=== PATIENT | male | born 1965 | race Caucasian/White ===

== ENCOUNTER 2021-12-07 07:53 | Outpatient (REF) | payer OTHER, SELFPAY ==
--- NOTE | 2021-12-07 11:51 | PFT_ITS ---
FLOWS: FEV1 106% of predicted at 4.31 L. FVC 96% predicted at 5.11 L. FEV1 to FVC ratio of 0.84. No bronchodilator response. LUNG VOLUMES: Total lung capacity 105% of predicted at 7.78 L. Residual volume 115% of predicted at 2.59 L. Slow vital capacity 101% of predicted at 5.18 L. Expiratory reserve volume 32% of predicted at 0.51 L. Diffusion capacity is normal. IMPRESSION: No obstructive or restrictive ventilatory defect. No bronchodilator response. Decreased expiratory reserve volume suggests extrathoracic restriction likely secondary to abdominal obesity. Kevan Martínez MD AP/MODL / [id number]
== END 2021-12-07 07:54 | disposition home or self-care (01) ==
LOC: HO.RESP 07:53
PROVIDERS: PCP Physician Assistant Medical; Visit Provider Physician Assistant Medical
DX: J45.909 Unspecified asthma, uncomplicated (principal)
CPT/HCPCS: 94060; 94727; 94729

== ENCOUNTER 2021-12-15 11:28 | Outpatient (REF) | payer OTHER, SELFPAY ==
--- NOTE | 2021-12-15 13:33 | PFT_ITS ---
FVC is 95%, FEV1 102%, FEV1/FVC ratio is 82, MVV 112%. Post bronchodilator therapy, there is no change. The patient was given methacholine challenge, and post methacholine challenge, there is no decline in the flow volumes. This is considered to be negative methacholine challenge test and does not indicate any diagnosis of bronchospasm or bronchial asthma. MD MONTY Anders/MODL / [id number]
== END 2021-12-15 11:29 | disposition home or self-care (01) ==
LOC: HO.RESP 11:28
PROVIDERS: PCP Physician Assistant Medical; Visit Provider Internal Medicine
DX: J30.9 Allergic rhinitis, unspecified (principal); R06.00 Dyspnea, unspecified
CPT/HCPCS: 94070; J7674

== ENCOUNTER 2025-01-01 11:17 | Outpatient (AMB) | payer BC, SELFPAY ==
--- NOTE | 2025-01-01 11:36 | A.OFFVIS_ITS ---
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 He is presenting with post-operative cataract surgery status, diabetes mellitus, and peripheral neuropathy. He underwent cataract surgery on the right eye one month ago, and on the left eye earlier this week. He reports improved vision in the right eye but persistent blurriness in the left. The patient is preparing f or future corrective eyewear. In terms of comorbid conditions, the patient's Type 2 Diabetes Mellitus is reportedly controlled. He experiences peripheral neuropathy, which manifests as leg cramps and is being treated with gabapentin and tizanidine, the latter in tablet form, successfully reducing cramps. He also employs nightly foot baths and creams for additional relief. Regular blood testing ensures his condition remains under control. [facility] Medical History (Updated 01/01/25 @ 11:37 by Cheyenne Lamar MD) Allergic rhinitis Social History Patient Tobacco Use Status: Former Tobacco user Years Smoked: 10 Review of Systems Narrative - Ophthalmologic: Reports blurry vision post-cataract surgery in the left eye; improved right eye vision post-surgery. - Endocrine: Reports controlled diabetes. - Neurologic: Reports peripheral neuropathy with cramping; improved with medication. Physical Exam Neuro Other: Mental Status: Alert and oriented to person, place, and time. Normal attention. Normal spontaneous speech, fluency, and comprehension. No obvious issues with mood and memory. Affect is appropriate. Cranial Nerves: CN II: Visual henriquez full to confrontation, visual acuity intact. CN III, IV, : Pupils equal, round, reactive to light and accommodation. Extraocular movements are normal. CN V: Facial sensation is normal. CN VII: Facial movements symmetrical. CN VIII: Hearing intact to bedside conversation is normal. CN IX, X: Palate elevates symmetrically. CN XI: Shoulder shrug and head turn symmetrical. CN XII: Tongue midline without atrophy or fasciculations. Extrapyramidal: Full facial expressions and blinking. No rigidity. Movements are appropriate with no tremor or abnormality. Speech: Normal; no dysarthria or tremor. Assessment & Plan Assessment & Plan (1) Peripheral neuropathy: Comment: NCV/EMG LE 06/09/19 Moderately severe chronic axonal sensory and motor peripheral neuropathy. EMG/NCS at [facility] in Feb 2017: Mod severe axonal SM PN, b/l distal tibial neuropathy across TT. MRI LS spine at [facility] in May 2019: large L5/S1 disc herniation Code(s): G62.9 - Polyneuropathy, unspecified Category: Medical Qualifiers: Peripheral neuropathy type: polyneuropathy, other Qualified Code(s): G62.89 - Other specified polyneuropathies Plan Impression: 59 years old man with painful moderately severe chronic axonal diabetic sensory and motor peripheral neuropathy Recommendations: 1. Gabapentin 600 mg 1 at bedtime 2. Carbamazepine 200 mg 1 at bedtime 3. Tizanidine 4 mg 1 at bedtime 4. Stay physically and socially active and appropriate foot care Medications: New gabapentin 600 mg PO BEDTIME 90 tabs 1RF carbamazepine (Tegretol) 200 mg PO ONCE 90 tabs 1RF 90 days tizanidine 4 mg PO BEDTIME 90 tabs 1RF muscle spasticity Coding Level of Care Code Est Pt Level 3 (50121) Global (50106) Diagnoses Other polyneuropathy G62.89 Peripheral neuropathy type: polyneuropathy, other
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
--- OUTSIDE RECORDS SUMMARY | 2025-01-01 14:21 | XMS_ITS | Clinical Summary ---
Author Organization [address] [facility] Address [address] [place] [address] Phone Care Team Providers Care Iron Melter Name Role Phone Noni Newberry Primary Care Provider [phone] Allergies Active Allergy Reactions Criticality Noted Date Comments Penicillin V Potassium 04/19/2005 Pen Vk Penicillins 04/28/2016 Phenergan Plain 08/17/2011 Promethazine 04/28/2016 Sulfa (Sulfonamide Antibiotics) 02/2005 Sulfa Drugs Medications albuterol HFA (PROAIR HFA ; PROVENTIL HFA ; VENTOLIN HFA) 90 mcg/actuation inhaler ALBUTEROL SULFATE 108 (90 Base) MCG/ACT Aero Soln Inhale 2 Puffs into the lungs every 4 hours as needed Active amLODIPine (NORVASC) 5 mg tablet Take 5 mg by mouth daily. Active amphetamine-de xtroamphetamin e (ADDERALL) 20 mg tablet Take 1 Tablet by mouth daily. Active carBAMazepine XR (TEGretol XR) 100 mg 12 hr tablet carbamazepine (TEGRETOL XR) 100 MG 12 hr tablet Take 100 mg by mouth daily Active empagliflozin (Jardiance) 10 mg tablet Empagliflozin 10 MG Tab Take by mouth Active gabapentin (NEURONTIN) 600 mg tablet Take 1 Tablet by mouth daily. Active levothyroxine (SYNTHROID, LEVOTHROID) 25 mcg tablet Take 25 mcg by mouth daily. Active losartan (COZAAR) 50 mg tablet Take 50 mg by mouth daily. Active tiZANidine (ZANAFLEX) 4 mg capsule Take 1 Capsule by mouth daily. Active Active Problems Problem Noted Date Diagnosed Date Hypothyroidism 04/21/2024 HTN (hypertension) 12/16/2016 Abnormal chest x-ray 11/10/2016 Asthma 11/10/2016 Back pain 11/02/2011 Umbilical hernia 11/02/2011 Neuropathy of foot 10/03/2011 Overview (04/21/2024): Snf; Dr Major; EMG/NCV basically normal 2007 Onychomycosis 10/03/2011 Fatty liver 09/01/2011 Elevated liver function tests 08/30/2011 Overview (04/21/2024): Snf. U/s 11/24 fatty liver (done for abnormal LFTs) Hyperlipidemia 08/30/2011 Impaired fasting glucose 08/30/2011 Subclinical hypothyroidism 08/30/2011 ADHD (attention deficit hyperactivity disorder) 08/17/2011 Overview (04/21/2024): Dr Monterroso in [place] Anxiety and depression 08/17/2011 Overview (04/21/2024): Counseling helpful. Atypical chest pain 08/17/2011 Overview (04/21/2024): Cardiac cath neg 2009 per patient, ?vasospasm Overweight 08/17/2011 Rash 08/17/2011 Encounters Date Type Department Care Team Description 10/16/2024 8:15 AM EDT Office Visit Pulmonology - [address] [place] [address] Kade Camargo MD Mild persistent asthma, unspecified whether complicated (Primary Dx) from Last 3 Months Immunizations Immunization Administration Dates Next Due Moderna SARS-CoV-2 COVID-19, mRNA, LNP-S, preservative free 08/21/2022 Surgical History Surgery Date Site/Laterality Comments VASECTOMY PROCEDURE: HISTORICAL VASECTOMY; COMMENT: 2005 vasectomy, 2007 reversal TONSILLECTOMY 1972 PROCEDURE: HISTORICAL TONSILLECTOMY BACK SURGERY 10/31 PROCEDURE: HISTORICAL BACK SURGERY; COMMENT: Dr Gomez Medical History Medical History Date Comments Abnormal chest x-ray 11/10/2016 DX:Abnormal chest x-ray Asthma 11/10/2016 DX:Asthma History of tobacco use 11/10/2016 DX:Histor y of tobacco use Hypothyroidism DX:Hypothyroidis m Family History Medical History Relation Name Comments Diabetes Father Other cancer Maternal Grandmother unknown type Coronary artery disease Neg Hx Hypertension Neg Hx Relation Name Status Comments Father Maternal Grandmother Social History Tobacco Use Types Packs/Day Years Used Date Smoking Tobacco: Former Cigarettes 1 Q uit: 02/19/2015 Smokeless Tobacco: Former Quit: 02/19/2015 Alcohol Use Standard Drinks/Week Comments Yes 0 (1 standard drink = 0.6 oz pur e alcohol) Sex and Gender Information Value Date Recorded Sex Assigned at Not on file Legal Sex Male 7:08 AM EST Gender Identity Not on file Sexual Orientation Not on file Obstetrics History Last Filed Vital Signs Vital Sign Reading Time Taken Comments Blood Pressure 92/70 10/16/2024 8:24 AM EDT Pulse 46 10/16/2024 8:24 AM EDT Temperature 36.5 C (97.7 F) 10/16/2024 8:24 AM EDT Respiratory Rate 20 10/16/2024 8:24 AM EDT Oxygen Saturation 98% 10/16/2024 8:24 AM EDT Inhaled Oxygen Concentration - - Weight 93.3 kg (205 lb 9.6 oz) 10/16/2024 8:24 A M EDT Height 185.4 cm (6' 1 ) 10/16/2024 8:24 AM EDT Body Mass Index 27.13 10/16/2024 8:24 AM EDT Plan of Treatment Upcoming Encounters Date Type Department Care Team (Late st Contact Info) Description 09/04/2025 9:00 AM EDT Ancillary Procedure Pulmonology [address] [phone] 10/16/2025 8:30 AM EDT Office Visit Pulmonology [address] [phone] Kade Camargo MD [address] [place] [phone] Health Maintenance Due Date Last Done Comments Colorectal Cancer Screening: Colonoscopy 1967 Diabetes: Annual Foot Exam 1977 Diabetes: Annual Retina Eye Exam 1977 Hepatitis A Vaccines (1 of 2 - Risk 2-dose series) 1986 Hepatitis B Vaccines (1 of 3 - 19+ 3-dose series) 1986 RSV Immunization Adult Patients (1 - Risk 50-74 years 1-dose series) 2017 Diabetes: Annual GFR (Glomerular Filtration Rate) 06/03/2021 06/03/2020, 10/31/2011 Cholesterol Screening (Lipid Panel) 01/29/2022 08/28/2011 HIV Screening 01/29/2022 Hypertension/CHF/CAD Annual BMP Blood Test 01/29/2022 06/03/2020, 10/31/2011 Lung Cancer Screening (Low Dose CT) 01/29/2022 Social Influencers of Health Screening 01/29/2022 Depression Screening 02/20/2024 Diabetes: Annual Urine Albumin-Creatinine Ratio (uACR) 10/16/2024 Diabetes: Blood Sugar Control Test (HGBA1C) 10/16/2024 08/28/2011 COVID-19 Vaccine ( season) 2024 04/20/2024, 01/10/2023, 08/21/2022, Additional history exists Influenza Vaccine (#1) 2024 , 01/20/2021, 11/20/2019, Additional history exists DTaP,Tdap,and Td Vaccines (5 - Td or Tdap) 06/12/2034 06/12/2024, 07/31/2013, 05/12/2013, Additional history exists Hepatitis C Screening Completed 06/02/2020, 002 Pneumococcal Vaccine: 50+ Years Completed 09/19/2024, 10/15/2018 Zoster Vaccines Completed 09/19/2024, 06/12/2024 HIB Vaccines Aged Out No longer eligi ble based on patient's age to complete this topic HPV Vaccines Aged Out No longer eligi ble based on patient's age to complete this topic IPV Vaccines Aged Out No longer eligi ble based on patient's age to complete this topic MMR Vaccines Aged Out No longer eligi ble based on patient's age to complete this topic Meningococcal ACWY Vaccine Aged Out N o longer eligible based on patient's age to complete this topic Meningococcal B Vaccine Aged Out No l onger eligible based on patient's age to complete this topic RSV Immunization Patients Under 20 months Aged Out No longer eligible based on patient's age to complete this topic Varicella Vaccines Aged Out No longer eligible based on patient's age to complete this topic Procedures Procedure Name Priority Date/Time Associated Diagnosis Comments ANNUAL BMP BLOOD TEST Routine 10/31/2011 HEMOGLOBIN A1C Routine 08/28/2011 LIPID PANEL Routine 08/28/2011 HEPATITIS C SCREENING Routine 08/21/2001 from Last 3 Months or Most Recently Relevant to Health Maintenance Results * Annual BMP Blood Test (10/31/2011) Pathologist [facility] Annual BMP Blood Test abstracted Result [facility] Provider HEALTH MAINTENANCE Final Result * (ABNORMAL) Hemoglobin A1c (08/28/2011) Pathologist [facility] Hemoglobin A1C 6.3(A) 4.0 - 6.0 % Blood Venous blood specimen / Unknown [facility] Provider LAB BLOOD ORDERABLES Taylor l Result * (ABNORMAL) Lipid panel (08/28/2011) [facility] LDL/HDL Ratio 6(A) 0 - 4 Triglycerides 230(A) 0 - 150 mg/dL Cholesterol 217(A) 0 - 200 mg/dL HDL 36(A) >=40 mg/dL LDL Cholesterol 135(A) 0 - 100 mg/dL Blood Venous blood specimen / Unknown [facility] Provider LAB BLOOD ORDERABLES Taylor l Result * Hepatitis C Screening (08/21/2001) Pathologist [facility] Hepatitis C Screening abstracted [facility] Provider HEALTH MAINTENANCE Final Result from Last 3 Months or Most Recently Relevant to Health Maintenance [place] [place] [address] Care Teams Iron Melter Relationship Specialty Start Date End Date Noni Newberry PA [address] [facility] [address] [place], [place] PCP - General Internal Medicine 02/26/17
--- OUTSIDE RECORDS SUMMARY | 2025-01-01 14:22 | XMS_ITS | Data Portability ---
Author Organization [facility], Main Office Address [address] [facility] [address] [place] [id number] Care Team Providers Care Recorder Of Deeds Name Role Phone VALERY ALVAREZ Primary Care Provider [phone] VLAD ATKINSON Video Editor MARIANNA MATHIS Contracts Manager MAXINE JIMENES Referring Provider [phone] DAVID ADAMES Neurosurgeon NORMA LEON Urologist SUMIT EDMOND Sales Representative Public Utilities TORI JORGENSEN Bone Process Operator HOMERO CRUMP Rn Cardiac Rehab Assessment No assessment recorded. Plan of Treatment Reminders Order Date Submit Date Provider Last Modified By Organization Details Last Modified Time Details Appointments Follow Up DM 30 2025 11:00A M Valery Alvarez PA-C Not available Not available Not available Lab hemoglo bin A1C, fingers tick 2024 025 In-Office Order, Internal Use Only DO Not Attach Compendium DO Not Attach Compendium, Do Not Delete/merge, [id number] 11/21/2024 10:11:51 hemoglo bin A1C, fingers tick 2024 025 In-Office Order, Internal Use Only DO Not Attach Compendium DO Not Attach Compendium, Do Not Delete/merge, [id number] 07/23/2024 15:01:43 PSA, serum or plasma - Screeni ng 2024 025 [facility], [address], [place], [address], 04/23/2024 16:54:05 hemoglo bin A1C, fingers tick 2024 025 In-Office Order, Internal Use Only DO Not Attach Compendium DO Not Attach Compendium, Do Not Delete/merge, [id number] 04/23/2024 14:53:12 CMP, serum or plasma 2024 025 [facility] (Centralized Electronic Ordering - All Locations), Patient Can Go To The Location Of Their Choice, [id number] 04/24/2024 10:06:19 CBC w/ auto diff 2024 025 [facility] (Centralized Electronic Ordering - All Locations), Patient Can Go To The Location Of Their Choice, [id number] 04/24/2024 10:06:19 TSH + free T4, serum 2024 025 [facility] (Centralized Electronic Ordering - All Locations), Patient Can Go To The Location Of Their Choice, [id number] 04/24/2024 10:06:17 hemoglo bin A1C, fingers tick 2023 024 [facility] In-Office Order, Internal Use Only DO Not Attach Compendium DO Not Attach Compendium, Do Not Delete/merge, [id number] 02/08/2024 14:39:59 microal bumin/c reatini ne, mass ratio, urine 2023 025 [facility] (Centralized Electronic Ordering - All Locations), Patient Can Go To The Location Of Their Choice, [id number] 04/26/2024 12:06:33 Referral diabeti c ophthal mology referra l 2023 024 zack Not available 02/11/2024 07:50:56 Procedures None recorde d. Surgeries None recorde d. Imaging US, liver - Abnorma l liver enzymes 2024 025 zack [facility] (Ultrasound), [address] [place], [address], 11/26/2024 09:43:37 electro cardiog pavithra 2024 025 [facility] In-Office Order, Internal Use Only DO Not Attach Compendium DO Not Attach Compendium, Do Not Delete/merge, [id number] 04/23/2024 16:55:03 NM, myocard ial perfusi on scan, w/ stress - Exertio nal chest pain, type II diabete s. 2024 025 zack [facility], [address] [place], [address], 05/19/2024 09:37:52 Medication Orders Flonase Allergy Relief 50 mcg/act uation nasal spray,s uspensi on 2024 025 [facility], [address] [place] [address], [address], 12/11/2024 10:03:51 dextroa mphetam ine-amp hetamin e ER 20 mg 24hr capsule ,extend release 2024 025 [place] [facility], [address] [place] [address], [address], 11/21/2024 10:45:00 dextroa mphetam ine-amp hetamin e ER 20 mg 24hr capsule ,extend release 2023 024 [place] [facility], [address] [place] [address], [address], 02/08/2024 15:04:35 Patient TargetsNo targets recorded. Patient Instructions Encounter Date Encounter Id Patient Instructions Last Modified By Organization Details Last Modified Time 02/08/2024 [id number] high blood press ure: care instructions Not available 02/08/2024 14:47:35 learning about h igh blood pressure Not available 02/08/2024 14:47:35 04/23/2024 [id number] high cholesterol : care instructions Not available 04/23/2024 15:31:49 Prostate Cancer Screening Not available 04/23/2024 16:53:49 high blood press ure: care instructions Not available 04/23/2024 15:31:49 learning about h igh blood pressure Not available 04/23/2024 15:31:48 dash diet: care instructions Not available 04/23/2024 16:53:49 gastroesophageal reflux disease (GERD): care instructions Not available 04/23/2024 15:31:48 attention defici t hyperactivity disorder (ADHD) in adults: care instructions Not available 04/23/2024 15:31:48 hypothyroidism: care instructions Not available 04/23/2024 15:31:49 07/23/2024 [id number] attention defici t hyperactivity disorder (ADHD) in adults: care instructions Not available 07/23/2024 15:01:42 high blood press ure: care instructions [email or web address] Not available 07/23/2024 15:01:42 learning about h igh blood pressure [email or web address] Not available 07/23/2024 15:01:42 dash diet: care instructions Not available 07/23/2024 15:11:07 11/21/2024 [id number] Metabolic Dysfunction-Associat ed Steatotic Liver Disease (MASLD): Care Instructions Not available 11/21/2024 10:44:43 high blood press ure: care instructions Not available 11/21/2024 10:44:43 learning about h igh blood pressure Not available 11/21/2024 10:44:43 12/11/2024 [id number] chronic sinusiti s: care instructions [email or web address] Not available 12/11/2024 10:03:51 Reason for Referral Diabetic Ophthalmology Refer ral for Disorder of nervous system due to type 2 diabetes mellitus Referring Physician: Valery Alvarez, Internal Medicine, Encounter Date: 02/08/2024 Results Created Date Observation Date Name Description Value Unit Range Abnormal Flag Note LastModifiedBy Organization Detail LastModifiedTime 02/08/20 24 02/08/2024 hemog lobin A1C, finge rstic k A1C 6.5 % 4-6 abnormal Not Available In-Office Order Internal Use Only DO Not Attach Compendium DO Not Attach Compendium, Do Not Delete/merge, [id number] 02/08/2024 14:18:26 04/24/19 25 04/24/2024 TSH+F REE T4 TSH 0.967 uIU/m L 0.450- 4.500 normal Not Available [facility] ([facility]) [address] [place], [address], 04/24/2024 10:06:17 04/24/19 25 04/24/2024 TSH+F REE T4 T4,free(dire ct) 0.97 NG/dL 0.82-1 .77 normal Not Available [facility] ([facility]) [address] [place], [address], 04/24/2024 10:06:17 04/24/19 25 04/24/2024 CBC WITH DIFFE RENTI AL/PL ATELE T WBC 5.8 x10e3 /uL 3.4-10 .8 normal Not Available [facility] ([facility]) [address] [place], [address], 04/24/2024 10:06:18 04/24/19 25 04/24/2024 CBC WITH DIFFE RENTI AL/PL ATELE T RBC 5.82 x10e6 /uL 4.14-5 .80 above high normal Not Available [facility] ([facility]) [address] [place], [address], 04/24/2024 10:06:18 04/24/19 25 04/24/2024 CBC WITH DIFFE RENTI AL/PL ATELE T hemoglobin 16.9 g/dL 13.0-1 7.7 normal Not Available [facility] ([facility]) [address] [place], [address], 04/24/2024 10:06:18 04/24/19 25 04/24/2024 CBC WITH DIFFE RENTI AL/PL ATELE T hematocrit 50.8 % 37.5-5 1.0 normal Not Available [facility] ([facility]) [address] [place], [address], 04/24/2024 10:06:18 04/24/19 25 04/24/2024 CBC WITH DIFFE RENTI AL/PL ATELE T MCV 87 fL 79-97 normal Not Available [facility] ([facility]) [address] [place], [address], 04/24/2024 10:06:18 04/24/19 25 04/24/2024 CBC WITH DIFFE RENTI AL/PL ATELE T MCH 29.0 pg 26.6-3 3.0 normal Not Available [facility] ([facility]) [address] [facility], [place], [address], 04/24/2024 10:06:18 04/24/19 25 04/24/2024 CBC WITH DIFFE RENTI AL/PL ATELE T MCHC 33.3 g/dL 31.5-3 5.7 normal Not Available [facility] ([facility]) [address] [place], [address], 04/24/2024 10:06:18 04/24/19 25 04/24/2024 CBC WITH DIFFE RENTI AL/PL ATELE T RDW 12.3 % 11.6-1 5.4 Not Available [facility] ([facility]) [address] [place], [address], 04/24/2024 10:06:18 04/24/19 25 04/24/2024 CBC WITH DIFFE RENTI AL/PL ATELE T platelets 193 x10e3 /uL 150-45 0 normal Not Available [facility] ([facility] [address] [place], [address], 04/24/2024 10:06:18 04/24/19 25 04/24/2024 CBC WITH DIFFE RENTI AL/PL ATELE T neutrophils 55 % not estab. normal Not Available [facility] ([facility]) [address] [place], [address], 04/24/2024 10:06:18 04/24/19 25 04/24/2024 CBC WITH DIFFE RENTI AL/PL ATELE T lymphs 31 % not estab. normal Not Available [facility] ([facility]) [address] [place], [address], 04/24/2024 10:06:18 04/24/19 25 04/24/2024 CBC WITH DIFFE RENTI AL/PL ATELE T monocytes 10 % not estab. normal Not Available [facility] ([facility]) [address] [facility], [place], [address], 04/24/2024 10:06:18 04/24/19 25 04/24/2024 CBC WITH DIFFE RENTI AL/PL ATELE T eos 3 % not estab. normal Not Available [facility] ([facility]) [address] [facility], [place], [address], 04/24/2024 10:06:18 04/24/19 25 04/24/2024 CBC WITH DIFFE RENTI AL/PL ATELE T basos 1 % not estab. normal Not Available [facility] ([facility]) [address] [place], [address], 04/24/2024 10:06:18 04/24/19 25 04/24/2024 CBC WITH DIFFE RENTI AL/PL ATELE T immature cells CHILD NUTRITION ASSISTANT Not Available [facility]) [address] [place], [address], 04/24/2024 10:06:18 04/24/19 25 04/24/2024 CBC WITH DIFFE RENTI AL/PL ATELE T neutrophils (absolute) 3.2 x10e3 /uL 1.4-7. 0 normal Not Available [facility] ([facility]) [address] [place], [address], 04/24/2024 10:06:18 04/24/19 25 04/24/2024 CBC WITH DIFFE RENTI AL/PL ATELE T lymphs (absolute) 1.8 x10e3 /uL 0.7-3. 1 normal Not Available [facility] ([facility]) [address] [facility], [place], [address], 04/24/2024 10:06:18 04/24/19 25 04/24/2024 CBC WITH DIFFE RENTI AL/PL ATELE T monocytes(ab solute) 0.6 x10e3 /uL 0.1-0. 9 normal Not Available [facility] ([facility]) [address] [facility], [place], [address], 04/24/2024 10:06:18 04/24/19 25 04/24/2024 CBC WITH DIFFE RENTI AL/PL ATELE T eos (absolute) 0.2 x10e3 /uL 0.0-0. 4 normal Not Available [facility] ([facility]) [address] [facility], [place], [address], 04/24/2024 10:06:18 04/24/19 25 04/24/2024 CBC WITH DIFFE RENTI AL/PL ATELE T baso (absolute) 0.1 x10e3 /uL 0.0-0. 2 normal Not Available [facility] ([facility]) [address] [facility], [place], [address], 04/24/2024 10:06:18 04/24/19 25 04/24/2024 CBC WITH DIFFE RENTI AL/PL ATELE T immature granulocytes 0 % not estab. Not Available [facility] ([facility]) [address] [facility], [place], [address], 04/24/2024 10:06:18 04/24/19 25 04/24/2024 CBC WITH DIFFE RENTI AL/PL ATELE T immature grans (abs) 0.0 x10e3 /uL 0.0-0. 1 Not Available [facility] ([facility]) [address], [place], [address], 04/24/2024 10:06:18 04/24/19 25 04/24/2024 CBC WITH DIFFE RENTI AL/PL ATELE T NRBC CHILD NUTRITION ASSISTANT Not Available [facility] ([facility]) [address], [place], [address], 04/24/2024 10:06:18 04/24/19 25 04/24/2024 CBC WITH DIFFE RENTI AL/PL ATELE T hematology comments: CHILD NUTRITION ASSISTANT Not Available [facility]) [address] [facility], [place], [address], 04/24/2024 10:06:18 04/24/19 25 04/24/2024 COMP. METAB OLIC PANEL (14) glucose 143 mg/dL 70-99 above high normal Not Available [facility] ([facility]) [address] [facility], [place], [address], 04/24/2024 10:06:19 04/24/19 25 04/24/2024 COMP. METAB OLIC PANEL (14) BUN 11 mg/dL 6-24 normal Not Available [facility] ([facility]) [address] [facility] [place], [address], 04/24/2024 10:06:19 04/24/19 25 04/24/2024 COMP. METAB OLIC PANEL (14) creatinine 0.88 mg/dL 0.76-1 .27 normal Not Available [facility] ([facility]) [address] [facility] [place], [address], 04/24/2024 10:06:19 04/24/19 25 04/24/2024 COMP. METAB OLIC PANEL (14) eGFR 100 mL/mi n/1.7 3 >59 normal Not Available [facility] ([facility]) [address] [facility] [place], [address], 04/24/2024 10:06:19 04/24/19 25 04/24/2024 COMP. METAB OLIC PANEL (14) BUN/creatini ne ratio 13 9-20 normal Not Available [facility] ([facility]) [address] [facility] [place], [address], 04/24/2024 10:06:19 04/24/19 25 04/24/2024 COMP. METAB OLIC PANEL (14) sodium 143 mmol/ L 134-14 4 normal Not Available [facility] ([facility]) [address] [facility] [place], [address], 04/24/2024 10:06:19 04/24/19 25 04/24/2024 COMP. METAB OLIC PANEL (14) potassium 4.6 mmol/ L 3.5-5. 2 normal Not Available [facility] ([facility]) [address] [facility], [place], [address], 04/24/2024 10:06:19 04/24/19 25 04/24/2024 COMP. METAB OLIC PANEL (14) chloride 102 mmol/ L 96-106 normal Not Available [facility] ([facility]) [address] [facility], [place], [address], 04/24/2024 10:06:19 04/24/19 25 04/24/2024 COMP. METAB OLIC PANEL (14) carbon dioxide, total 24 mmol/ L 20-29 normal Not Available [facility] ([facility]) [address] [facility] [place], [address], 04/24/2024 10:06:19 04/24/19 25 04/24/2024 COMP. METAB OLIC PANEL (14) calcium 9.7 mg/dL 8.7-10 .2 normal Not Available [facility] ([facility]) [address] [facility] [place], [address], 04/24/2024 10:06:19 04/24/19 25 04/24/2024 COMP. METAB OLIC PANEL (14) protein, total 6.8 g/dL 6.0-8. 5 normal Not Available [facility] ([facility]) [address] [facility] [place], [address], 04/24/2024 10:06:19 04/24/19 25 04/24/2024 COMP. METAB OLIC PANEL (14) albumin 4.9 g/dL 3.8-4. 9 normal Not Available [facility] ([facility]) [address] [facility], [place], [address], 04/24/2024 10:06:19 04/24/19 25 04/24/2024 COMP. METAB OLIC PANEL (14) globulin, total 1.9 g/dL 1.5-4. 5 Not Available [facility] ([facility]) [address] [facility] [place], [address], 04/24/2024 10:06:19 04/24/19 25 04/24/2024 COMP. METAB OLIC PANEL (14) bilirubin, total 0.3 mg/dL 0.0-1. 2 normal Not Available [facility] ([facility]) [address] [facility] [place], [address], 04/24/2024 10:06:19 04/24/19 25 04/24/2024 COMP. METAB OLIC PANEL (14) alkaline phosphatase 88 IU/L 44-121 normal Not Available [facility] [address] [facility] [place], [address], 04/24/2024 10:06:19 04/24/19 25 04/24/2024 COMP. METAB OLIC PANEL (14) AST (SGOT) 35 IU/L 0-40 normal Not Available [facility] ([facility]) [address] [facility], [place], [address], 04/24/2024 10:06:19 04/24/19 25 04/24/2024 COMP. METAB OLIC PANEL (14) ALT (SGPT) 54 IU/L 0-44 above high normal Not Available [facility] ([facility]) [address] [facility], [place], [address], 04/24/2024 10:06:19 04/24/19 25 04/26/2024 ALBUM IN/CR EAT RATIO , RANDO M UR creatinine, urine 136.0 mg/dL not estab. normal Not Available [facility] ([facility]) [address] [facility], [place], [address], 04/26/2024 12:06:33 04/24/19 25 04/26/2024 ALBUM IN/CR EAT RATIO , RANDO M UR albumin, urine 16.8 ug/mL not estab. Not Available [facility] ([facility]) [address] [facility], [place], [address], 04/26/2024 12:06:33 04/24/19 25 04/26/2024 ALBUM IN/CR EAT RATIO , RANDO M UR alb/creat ratio 12 mg/g_ creat 0-29 Autumn l: 0 - 29 Moder ately incre ased: 30 - 300 Sever tila incre ased: >300 Not Available [facility] ([facility]) [address] [facility], [place], [address], 04/26/2024 12:06:33 04/24/19 25 04/23/2024 hemog lobin A1C, finge rstic k A1C 6.6 % 4-6 abnormal Not Available In-Office Order Internal Use Only DO Not Attach Compendium DO Not Attach Compendium, Do Not Delete/merge, [id number] 04/23/2024 14:38:15 07/24/19 25 07/23/2024 hemog lobin A1C, finge rstic k A1C 6.3 % 4-6 abnormal Not Available In-Office Order Internal Use Only DO Not Attach Compendium DO Not Attach Compendium, Do Not Delete/merge, [id number] 07/23/2024 14:26:13 11/22/19 25 11/21/2024 hemog lobin A1C, finge rstic k A1C 6.4 % 4-6 high Not Available In-Office Order Internal Use Only DO Not Attach Compendium DO Not Attach Compendium, Do Not Delete/merge, [id number] 11/21/2024 10:09:37 04/24/19 25 04/23/2024 elect rocar diogr am No observ ation record ed. In-Office Order Internal Use Only DO Not Attach Compendium DO Not Attach Compendium, Do Not Delete/merge, [id number] 07/23/2024 15:09:15 04/24/19 elect rocar diogr am No observ ation record ed. Not Available 2024 15:09:43 05/29/19 25 05/15/2024 NM, myoca rdial perfu anna scan, w/ stres s No observ ation record ed. [place] [facility] [address], [place], [address], 07/23/2024 15:08:22 12/09/19 25 12/08/2024 US, liver US Liver Reason : K75.81 . Abnorm al LFTs COMPAR JERED: 07/27/[address] Abdome n Pelvis withou t Contra st 022 IMAGIN G TECHNI QUE: Graysc cristy and color Dopple r ultras ound examin ation of the liver. FINDIN GS: Liver: Diffus tila echoge stephania parenc hyma with focal sparin g around the gallbl adder. Right lobe cyst measur ing 0.7 x 0.8 x 1.1 cm. No suspic ious lesion . Smooth hepati c contou r. Main portal vein patent with normal hepato petal direct ion of flow. Biliar y Tree: No intrah epatic or extrah epatic bile duct dilati on is identi fied. Common duct: 0.3 cm. Incide ntal gallst ones, noted on prior studie s. IMPRES ANNA: Echoge stephania liver likely repres enting hepati c steato sis. No suspic ious lesion . Incide ntal gallst ones. WSN: [id number] Orderi ng Physic cory: Cruz Alvarez ia Dictat ed By: Robin Noonan MD Dictat ed Date/T elly: 12:26 p Review ed By: Robin Noonan MD Signed By: Robin Noonan MD Signed Date/T elly: 12:26 pm Transc ribed By: CSB Transc ribed Date/T elly: 11:01 am Patien t Class: Outpat ient [email or web address] [facility] (Outpt Imaging) [address], [place], [address], 12/25/2024 13:12:47 12/09/1912/08/2024 US, liver No observ ation record ed. [email or web address] [facility] (Ultrasound) [address] [place], [address], 12/16/2024 14:02:49 Result Notes None recorded. 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 Active 2016 Not Available [facility] 3 08:12:42 Pure hypercho lesterol emia 226593951 Active 2016 Not Available [facility] 3 08:12:42 [place] hyperten anna 05107573 Active 2016 Not Available [facility] 3 08:12:42 Impaired glucose toleranc e 4836961 Completed 201610/20/2016 Valery Alvarez PA-C [address], [place], [address] , [facility] 7 09:56:24 Body mass index 25-29 - overweig ht 311563937 Completed 201604/12/2018 Valery Alvarez PA-C [address], [place], [address] , [facility] 9 10:31:45 Secondar y peripher al neuropat hy 884282 Completed 201604/12/2018 Valery FRANKLIN-C [address], [place], [address] , [facility] 9 10:40:06 Displace ment of lumbar interver tebral disc without myelopat hy 25729715 Active 2016 surgery in 2018 Not Available [facility] 3 08:12:42 Chronic obstruct maria r pulmonar y disease 61360287 Completed 201611/16/2017 Valery FRANKLIN-C [address], [place], [address] , [facility] 8 12:10:22 Vertigo 225287289 Completed 201610/15/2018 Valery FRANKLIN-C [address], [place], [address] , [facility] 9 10:17:06 Type 2 diabetes mellitus without complica tion 653631538 Completed 201611/15/2016 Valery FRANKLIN-C [address], [place], [address] , [facility] 9 10:51:57 Left ventricu lar hypertro phy 29655133 Active 2016 Not Available [facility] 3 08:12:42 Subclini mery hypothyr oidism 31838089 Completed 201701/09/2018 Valery FRANKLIN-C [address], [place], [address] , [facility] 8 12:21:30 Moderate persiste nt asthma 644487295 Active 2017 Not Available [facility] 3 08:12:42 Prediabe rodolfo 645905936 Completed 201701/09/2018 Valery FRANKLIN-C [address], [place], [address] , [facility] 8 12:20:28 Type 2 diabetes mellitus without complica tion 389965158 Completed 201701/14/2019 Valery Alvarez PA-C [address], [place], [address] , [facility] 9 10:51:57 Diabetic peripher al neuropat hy 454165766 Active 2018 Not Available [facility] 3 08:12:42 Steatoti c liver disease 671036672 Active 2018 ultrasou nd performe d Not Available [facility] 3 08:12:42 Cholelit hiasis without obstruct ion 99937533 Completed 201810/15/2018 Valery Alvarez PA-C [address], [place], [address] , [facility] 9 10:16:28 Attentio n deficit hyperact ivity disorder , predomin antly hyperact maria r impulsiv e type 3464058 Active 2019 Not Available [facility] 3 08:12:42 History of surgery 179697893 Active 2019 right L5- S1 Not Available [facility] 3 08:12:42 Primary erectile dysfunct ion 224932451 Active 2019 Not Available [facility] 3 08:12:42 Type 2 diabetes mellitus 84916505 Completed 201909/30/2019 Valery Alvarez PA-C [address], [place], [address] , [facility] 0 10:49:01 Bilatera l tinnitus 05721704145 02 Active 2020 Not Available [facility] 3 08:12:42 Erectile dysfunct ion 119928138 Active 2020 Not Available [facility] 3 08:12:42 Cholelit hiasis with obstruct ion 77662729 Active 2021 L. kidney , pt. had surgery. Not Available [facility] 3 08:12:42 COVID-19 280806437 Completed 202104/23/2024 RYLEE Jeong, [facility] 5 14:26:44 Gastroes ophageal reflux disease 854161764 Active 2022 Not Available [facility] 3 08:12:42 Disorder of nervous system due to type 2 diabetes mellitus 513794896 Active 2022 Not Available [facility] 3 08:12:42 Lesion of skin of face 18031932173 6 Active 2022 Not Available [facility] 3 08:12:42 Vitreous detachme nt 80216826 Active 2023 Raghu mckeon, [facility] 4 10:22:33 Vitreous detachme nt 62953526 Active 2023 seen by retina speciali sta Valery Alvarez PA-C [address], [place], [address] , [facility] 4 10:45:27 Chest pain on exertion 62443226 Active 2024 Valery Alvarez PA-C [address], [place], [address] , [facility] 5 15:41:09 Prinzmet al angina 17492452 Active 2024 followed by cardiolo gist Valery Alvarez PA-C [address], [place], [address] , [facility] 5 15:07:22 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 Procedures Surgical History Date Name Laterality Status Provider Name and Address Organization Details Recorded Time 025 ultrasonography of liver completed Татьяна Ochoa [facility] 12/16/2024 14:02:44 025 diabetic retinopathy screening completed Vane Dey [facility] 07/07/2024 08:30:01 024 Diabetic Foot Exam (Monofilament) completed Raghu Reyes [facility] 08/03/2023 10:34:17 023 Colonoscopy completed Radha Clinton [facility] 07/31/2022 09:18:17 021 Diabetic Foot Exam (Monofilament) completed Valery Alvarez PA-C [address] [facility] [address], [place], [address], [facility] [facility] 11:28:35 020 lumbar microdiscectomy completed Louise Townsend [facility] 08/08/2019 14:52:46 020 Diabetic Foot Exam (Monofilament) completed Courtney Johnston [facility] 04/17/2019 09:51:07 019 Diabetic Foot Exam (Monofilament) completed Valery Alvarez PA-C [address] [facility] [address] [facility], [place], [address], [facility] 10/15/2018 10:30:24 018 Egd diagnostic brush wash completed Courtney Gómez [facility] 08/14/2017 13:31:00 018 hand excision completed Kelsey Uribe [facility] 10/15/2018 09:18:37 016 Hernia Repair completed Alfa Carr [facility] 09/01/2016 09:47:50 015 Other completed Alfa Jami Carr [facility] 09/01/2016 09:47:38 012 Back Surgery completed Carly Cheng MA [facility] 05/26/2019 15:11:32 Imaging Results None recorded. Procedure Notes None recorded. Medical Equipment None Reported. Allergies Allergen ID Allergen Name Allergen Category Reaction Reaction Severity Criticality Documentation Date Start Date Code Code System Note Provider Name and Address Organization Details Recorded Time 07296 Product containin g penicilli n (product) medicatio n Not available Not available Not available 09/01/2016 48321 8001 SNOMED rash Courtney Barillaselisa tus null, [facility] 0 14:07:49 17015 Substance with sulfonami de structure and antibacte rial mechanism of action (substanc e) medicatio n Not available Not available Not available 09/01/2016 73800 8003 SNOMED heada nhan Courtney Barillaselisa tus null, [facility] 0 14:07:58 85764 metformin medicatio n nausea moderate Not available 10/11/2022 6809 RxNorm Valery Alvarez PA-C [address] [address], [facility] [address], [facility] 3 16:21:02 Medications Name Sig Start Date Stop Date Status Note LastModified by Organization Details LastModified Time losartan 50 mg tablet TAKE 1 TABLET BY MOUTH EVERY DAY 2024 active Not Available Not Available Not Avai lable cyclobenz aprine 10 mg tablet TAKE 1 TABLET BY MOUTH EVERY DAY AT BEDTIME NEEDED 09/29 completed Not Available Not Available Not Available metformin 500 mg tablet Take 1 tablet twice a day by oral route for 90 days. 11/02 completed Not Available Not Available Not Available prednison e 10 mg tablet PLEASE SEE ATTACHED FOR DETAILED DIRECTIO NS 06/02 completed Not Available Not Available Not Available gabapenti n 600 mg tablet TAKE 1 TABLET BY MOUTH EVERY DAY FOR 90 DAYS active Not Available Not Available No t Available atorvasta tin 20 mg tablet TAKE 1 TABLET BY MOUTH EVERY DAY active Not Available Not Available No t Available albuterol sulfate 2.5 mg/3 mL (0.083 %) solution for nebulizat ion USE 1 VIAL VIA NEBULIZE R EVERY 6 HOURS NEEDED FOR WHEEZING FOR UP TO 30 DAYS active Not Available Not Available No t Available azithromy ayan 250 mg tablet TAKE 2 TABLETS (500 MG) BY ORAL ROUTE ONCE DAILY FOR 1 DAY THEN 1 TABLET (250 MG) BY ORAL ROUTE ONCE DAILY FOR 4 DAYS 04/26 completed Not Available Not Available Not Available ibuprofen 800 mg tablet TAKE 1 TABLET BY MOUTH EVERY 8 HOURS NEEDED FOR PAIN 07/23 completed Not Available Not Available Not Available tizanidin e 4 mg tablet TAKE 1 TABLET BY MOUTH EVERYDAY AT BEDTIME active Not Available Not Available No t Available hydrocort isone valerate 0.2 % topical cream Apply 1 applicat ion every day by topical route as needed for 30 days. 02/28 completed Not Available Not Available Not Available Claritin 10 mg tablet Take 1 tablet every day by oral route. active Not Available Not Available No t Available carbamaze pine ER 100 mg tablet,ex tended release,1 2 hr Take 1 tablet every day by oral route at bedtime for 90 days. 12/22 completed Not Available Not Available Not Available ondansetr on HCl 4 mg tablet TAKE 1 TABLET BY MOUTH EVERY 8 HOURS NEEDED FOR NAUSEA AND VOMITING 02/28 completed Not Available Not Available Not Available prednison e 20 mg tablet Take 2 tablets every day by oral route for 5 days. 04/26 completed Not Available Not Available Not Available meclizine 12.5 mg tablet Take 1 tablet twice a day by oral route as needed for 30 days. 06/21 completed Not Available Not Available Not Available amlodipin e 5 mg tablet TAKE 1 TABLET BY MOUTH EVERY DAY 2024 active Not Available Not Available Not Avai lable omeprazol e 40 mg capsule,d elayed release TAKE 1 CAPSULE BY MOUTH EVERY DAY 12/20 completed Not Available Not Available Not Available triamcino lone acetonide 0.1 % topical cream Apply 1 applicat ion twice a day by topical route as directed for 30 days. 02/28 completed Not Available Not Available Not Available levothyro xine 25 mcg tablet TAKE 1 TABLET BY MOUTH EVERY DAY DIRECTED active Not Available Not Available No t Available carbamaze pine 200 mg tablet TAKE 1 TABLET BY MOUTH EVERY DAY AT NIGHT FOR 90 DAYS active Not Available Not Available No t Available oxycodone -acetamin ophen 5 mg-325 mg tablet PLEASE SEE ATTACHED FOR DETAILED DIRECTIO NS 09/29 completed Not Available Not Available Not Available dextroamp hetamine- amphetami ne ER 20 mg 24hr capsule,e xtend release Take 1 capsule every day by oral route for 30 days. 2024 active Not Available Not Available Not Avai lable amitripty line 10 mg tablet Take 1 tablet twice a day by oral route. 04/12 completed Not Available Not Available Not Available phenazopy ridine 100 mg tablet TAKE 1 TABLET THREE TIMES A DAY NEEDED FOR STENT DISCOMFO RT 06/23 completed Not Available Not Available Not Available econazole nitrate 1 % topical cream APPLY DAILY TO SKIN TO AFFECTED AREA EVERY DAY active Not Available Not Available No t Available lisinopri l 10 mg tablet 1 po qd 10/10 completed Not Available Not Available Not Available prednison e 50 mg tablet TAKE 1 TABLET BY MOUTH EVERY DAY FOR 5 DAYS 09/09 completed Not Available Not Available Not Available dextroamp hetamine- amphetami ne 15 mg tablet TAKE 1 TABLET BY MOUTH TWICE A DAY 04/19 completed when unable to get Adderall XR 20 mg Not Available Not Available Not Available gabapenti n 300 mg capsule Take 1 capsule every day by oral route at bedtime for 30 days. 12/22 completed Not Available Not Available Not Available diclofena c sodium 75 mg tablet,de layed release 05/04 completed Not Available Not Available Not Available monteluka st 10 mg tablet TAKE 1 TABLET BY MOUTH EVERYDAY AT BEDTIME 12/20 completed Not Available Not Available Not Available lisinopri l 5 mg tablet Take 1 tablet every day by oral route as directed for 90 days. 11/15 completed Not Available Not Available Not Available gabapenti n 100 mg capsule Take 3 capsules every day by oral route in the evening. 05/04 completed Not Available Not Available Not Available levofloxa ayan 500 mg tablet Take 1 tablet every 24 hours by oral route for 7 days. 10/03 completed Not Available Not Available Not Available levofloxa ayan 750 mg tablet TAKE 1 TABLET BY MOUTH EVERY 24 HOURS FOR 3 DAYS 06/23 completed Not Available Not Available Not Available methylpre dnisolone 4 mg tablets in a dose pack TAKE 6 TABLETS ON DAY 1 DIRECTED ON PACKAGE AND DECREASE BY 1 TAB EACH DAY FOR A TOTAL OF 6 DAYS 09/29 completed Not Available Not Available Not Available albuterol sulfate HFA 90 mcg/actua tion aerosol inhaler INHALE 2 PUFFS BY MOUTH EVERY 4 TO 6 HOURS NEEDED active Not Available Not Available No t Available oxybutyni n chloride 5 mg tablet TAKE 1 TABLET BY MOUTH THREE TIMES A DAY NEEDED FOR URINARY DISCOMFO RT 06/23 completed Not Available Not Available Not Available ondansetr on 4 mg disintegr ating tablet TAKE 1 TABLET BY MOUTH EVERY 8 HOURS NEEDED 07/23 completed Not Available Not Available Not Available metformin ER 500 mg tablet,ex tended release 24 hr TAKE 1 TABLET BY MOUTH EVERY DAY DIRECTED 04/19 completed Not Available Not Available Not Available doxycycli ne hyclate 100 mg tablet Take 1 tablet twice a day by oral route for 10 days. 04/17 completed Not Available Not Available Not Available oxycodone 5 mg tablet TAKE 1 TABLET BY MOUTH EVERY 4 TO 6 HOURS NEEDED 09/09 completed Not Available Not Available Not Available dextroamp hetamine- amphetami ne ER 15 mg 24hr capsule,e xtend release TAKE 1 CAPSULE BY MOUTH EVERY DAY FOR 30 DAYS 01/01 completed Not Available Not Available Not Available nitrofura ntoin monohydra te/macroc rystals 100 mg capsule TAKE 1 CAPSULE BY MOUTH TWICE A DAY 09/09 completed Not Available Not Available Not Available emtricita bine 200 mg-tenofo vir disoproxi l fumarate 300 mg tablet TAKE 1 TABLET BY MOUTH EVERY DAY FOR 10 DAYS 07/23 completed Not Available Not Available Not Available bromfenac 0.09 % eye drops INSTILL 1 DROP IN RIGHT EYE DAILY active Not Available Not Available No t Available sildenafi l (pulmonar y hypertens ion) 20 mg tablet Take 1 tablet as needed by oral route for 5 days. active Not Available Not Available No t Available Sudafed 07/23 completed Not Available Not Available Not Available gabapenti n 300 mg 2 po tid 06/18 completed Not Available Not Available Not Available Advair HFA 115 mcg-21 mcg/actua tion aerosol inhaler INHALE 2 PUFFS INTO THE LUNGS 2 TIMES DAILY FOR 30 DAYS. 04/19 completed Not Available Not Available Not Available Symbicort 160 mcg-4.5 mcg/actua tion HFA aerosol inhaler Inhale 1 puff every day by inhalati on route as directed for 30 days. 02/21 completed Not Available Not Available Not Available gabapenti n ER 600 mg tablet,ex tended release 24 hr Take 2 tablets 3 times a day by oral route. 01/01 completed Not Available Not Available Not Available OneTouch Verio test strips TAKE 1 STRIP(S) 3 TIMES A DAY BY MISCELL. ROUTE FOR 30 DAYS. active Not Available Not Available No t Available Tivicay 50 mg tablet TAKE 1 TABLET BY MOUTH DAILY FOR 10 DAYS 07/23 completed Not Available Not Available Not Available Jardiance 10 mg tablet TAKE 1 TABLET BY MOUTH EVERY DAY 2024 active Not Available Not Available Not Avai lable Flonase Allergy Relief 50 mcg/actua tion nasal spray,shwetha pension [place] 1 spray every day by intranas al route as directed for 30 days. 2024 active Not Available Not Available Not Avai lable Plenvu 140 gram-9 gram-5.2 gram powder packs TAKE 3 PACKET BY MOUTH DIRECTED 12/20 completed Not Available Not Available Not Available Wixela Inhub 250 mcg-50 mcg/dose powder for inhalatio n TAKE 1 PUFF BY MOUTH TWICE A DAY 02/07 completed Not Available Not Available Not Available Wixela Inhub 500 mcg-50 mcg/dose powder for inhalatio n INHALE 1 PUFF INTO THE LUNGS 2 TIMES DAILY FOR 30 DAYS. active Not Available Not Available No t Available Flucelvax Quad (PF) 60 mcg (15 mcg x 4)/0.5 mL IM syringe PHARMACY ADMINIST ERED 01/01 completed Not Available Not Available Not Available Vitals Date Recorded Body height Body mass index (BMI) Body weight Heart rate Oxygen saturation Oxygen saturation in Arterial blood by Pulse oximetry Body temperature Systolic And Diastolic Provider Name and Address Organization Details Last Updated DateTime 5 184.15 cm 27.8 kg/m2 08210.2 1 g 58 /min 98 % 98 % 98.3 [degF] 132/70 mm[Hg] Rhoda daily MA [facility] 5 14:40:12 Date Recorded Body height Body mass index (BMI) Body weight Heart rate Oxygen saturation Oxygen saturation in Arterial blood by Pulse oximetry Body temperature Systolic And Diastolic Provider Name and Address Organization Details Last Updated DateTime 5 184.15 cm 27.8 kg/m2 36878.2 1 g 56 /min 99 % 99 % 98.2 [degF] 119/56 mm[Hg] Rhoda daily MA [facility] 5 14:37:32 Date Recorded Body height Body mass index (BMI) Body weight Oxygen saturation Oxygen saturation in Arterial blood by Pulse oximetry Heart rate Body temperature Systolic And Diastolic Provider Name and Address Organization Details Last Updated DateTime 5 184.15 cm 27.5 kg/m2 00239.5 4 g 98 % 98 % 60 /min 97.9 [degF] 129/72 mm[Hg] Carly Cheng MA [facility] 5 10:03:36 Date Recorded Body height Body mass index (BMI) Body weight Heart rate Oxygen saturation Oxygen saturation in Arterial blood by Pulse oximetry Body temperature Systolic And Diastolic Provider Name and Address Organization Details Last Updated DateTime 5 184.15 cm 27.4 kg/m2 87041.4 4 g 71 /min 98 % 98 % 98.2 [degF] 122/72 mm[Hg] Aj avila MA [facility] 5 09:42:29 Date Recorded Body height Body mass index (BMI) Body weight Heart rate Oxygen saturation Oxygen saturation in Arterial blood by Pulse oximetry Body temperature Systolic And Diastolic Provider Name and Address Organization Details Last Updated DateTime 4 184.15 cm 28.1 kg/m2 76219.8 g 71 /min 98 % 98 % 98.4 [degF] 122/75 mm[Hg] Raina Wolf LPN [facility] 14:40:03 Social History Question Answer Notes LastModified by Organizat ion Details LastModified Time Tobacco Smoking Status Former Smoker RYLEE Goyal, [facility] 04/23/2024 14:29:35 Do You Have An Advance Directive? Yes 09/01/2016 [email or web address] Information not available 07/23/2020 Is Blood Transfusion Acceptable In An Emergency? Yes Information not available 09/01/2016 What Is Your Level Of Caffeine Consumption? None Information not available 04/20/2023 How Much Tobacco Do You Chew? None Information not available 09/01/2016 What Type Of Diet Are You Following? REGULAR Information not available 09/01/2016 Which Illicit Or Recreational Drugs Have You Used? Marijuana No Marijuana Since July 2021 - Quit. Information not available 04/23/2024 When Did You Quit Smoking? 1-5yearssinc [email or web address] Information not available 04/20/2023 Live Alone Or With Others? With Others , Step Daughter, Grand Daughter Information not available 09/01/2016 Do You Take Precautions To Prevent Distracted Driving? Yes Information not available 09/01/2016 How Often Do You Need To Have Someone Help You When You Read Instructions, Pamphlets, Or Other Written Material From Your Doctor Or Pharmacy? Never Information not available 09/01/2016 Have You Served In The ? Yes Information not available 09/01/2016 Have You Or Anyone In Your Household Had Any Of The Following Symptoms In The Last 14 Days: Sore Throat, Cough, Chills, Body Aches For Unknown Reasons, Shortness Of Breath For Unknown Reasons, Loss Of Smell, Loss Of Taste, Fever At Or Greater Than 100 Degrees Fahrenheit? No [email or web address] Information not available 03/26/2020 Are You Or Anyone In Your Household A Health Care Provider Or Emergency Responder? No [email or web address] Information not available 03/26/2020 To The Best Of Your Knowledge Have You Been In Close Proximity To Any Individual Who Tested Positive For COVID-19? No [email or web address] Information not available 03/26/2020 Have You Recently Traveled To A COVID-19 High Risk Area Or Gathering In The Last 10 Days? No [email or web address] Information not available 03/26/2020 What Was The Date Of Your Most Recent Tobacco Screening? 04/23/2024 Information not available 04/23/2024 How Many Children Do You Have? 4 Information not available 09/01/2016 What Is Your Current Pack Years? 10-19packyea rs Information not available 04/23/2024 Do You Use Protection During Sex? No Information not available 09/01/2016 Seat Belts Used Routinely Yes Information not available 09/01/2016 Are You Sexually Active? Yes Information not available 09/01/2016 Smoke Alarm In Home Yes Information not available 09/01/2016 At What Age Did You Start Smoking Tobacco? 20 Information not available 10/18/2021 Are You Passively Exposed To Smoke? Yes Information not available 09/01/2016 How Much Tobacco Do You Smoke? 0.5 PPD Information not available 04/23/2024 Do You Use Sunscreen Routinely? Yes Information not available 09/01/2016 How Many Years Have You Smoked Tobacco? 37 Quit 10/18/21 At Age 57 Information not available 04/23/2024 Sex: Unknown Functional Status Question Answer Note LastModified by Organizat ion Details LastModified Time Do you use any illicit or recreational drugs? No Information not available 10/18/2021 Do you or have you ever used any other forms of tobacco or nicotine? No Information not available 04/23/2024 What is your level of alcohol consumption? None Information not available 10/15/2018 Do you or have you ever used smokeless tobacco? Never used smokeless tobacco Information not available 10/15/2018 Are you currently employed? Yes Information not available 09/01/2016 Are you able to walk independently without assistance or assistive devices? YESWOREST Information not available 10/18/2021 Are you able to care for yourself independently? 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 Never used electronic cigarettes [email or web address] Information not available 07/23/2020 What is your exercise level? None Information not available 04/20/2023 Mental Status None recorded. Family History Relationship Description Onset Age of this Age Resolved Age Notes LastModified by Organization Details LastModified Time Father Diabetes mellitus [email or web address] Not available 09:44:27 Father Obesity [email or web address] Not availa ble 09/01/2016 09:44:35 Medical History No medical history recorded. Immunizations Vaccine Type Date Status Note Provider Name and Address Organization Details Recorded Time Tdap 012 completed Vane mckeon [facility] 01/12/2023 08:26:38 Tdap 014 completed Vane mckeon [facility] 01/12/2023 08:26:38 [facility] 08:26:38 Influenza, MDCK, quadrivalent, PF 020 completed Vane mckeon [facility] 01/12/2023 08:26:38 COVID-19, mRNA, LNP-S, PF, 100 mcg/0.5mL dose or 50 mcg/0.25mL dose 021 completed Vane mckeon [facility] 01/12/2023 08:26:38 COVID-19, mRNA, LNP-S, PF, 100 mcg/0.5mL dose or 50 mcg/0.25mL dose 021 completed Vane mckeon [facility] 01/12/2023 08:26:38 Influenza, split virus, quadrivalent, PF 021 completed Vane Dey null, [facility] 01/12/2023 08:26:38 COVID-19, mRNA, LNP-S, PF, 100 mcg/0.5mL dose or 50 mcg/0.25mL dose 021 completed Vane Dey null, [facility] 01/12/2023 08:26:38 COVID-19, mRNA, LNP-S, PF, 100 mcg/0.5mL dose or 50 mcg/0.25mL dose 022 completed Vane Dey null, [facility] 01/12/2023 08:26:38 Influenza, split virus, quadrivalent, PF 017 completed Vane Dey null, [facility] 01/12/2023 08:26:38 pneumococcal polysaccharide PPV23 019 completed Vane Dey null, [facility] 01/12/2023 08:26:38 Influenza, split virus, quadrivalent, PF 018 completed Vane Dey null, [facility] 01/12/2023 08:26:38 COVID-19, mRNA, LNP-S, bivalent, PF, 50 mcg/0.5 mL or 25mcg/0.25 mL dose 023 completed Vane Dey null, [facility] 01/12/2023 08:26:38 COVID-19, mRNA, LNP-S, PF, 100 mcg/0.5mL dose or 50 mcg/0.25mL dose 023 completed Vane Dey null, [facility] 01/12/2023 08:26:38 COVID-19, mRNA, LNP-S, PF, 50 mcg/0.5 mL 023 completed Vane Dey null, [facility] 01/12/2023 08:26:38 Influenza, split virus, quadrivalent, PF 023 completed Vane Dey null, [facility] 01/12/2023 08:26:38 COVID-19, mRNA, LNP-S, PF, yasmani-sucrose, 30 mcg/0.3 mL 025 completed Rhoda lutz MA null, [facility] 04/23/2024 14:40:36 zoster recombinant 025 completed Vane mckeon, [facility] 09/22/2024 08:59:47 Tdap 025 completed Vane mckeon, [facility] 06/16/2024 11:29:49 zoster recombinant 025 completed Vane mckeon, [facility] 09/22/2024 08:59:47 Pneumococcal conjugate PCV21, polysaccharide [id number] conjugate, PF 025 completed Vane mckeon, [facility] 09/22/2024 08:59:47 Influenza, split virus, quadrivalent, PF 017 cancelled patient objection Not Available [facility] 03/08/2019 02:22:11 Past Encounters Encounter ID Performer Location Encounter Start Date Encounter Closed Date Diagnosis/Indication Diagnosis SNOMED-CT Code Diagnosis ICD10 Code Diagnosis IMO Codes Diagnosis Note [id number] Valery Alvarez PA-C Main Office [address] [facility] [address] [place] [address] 09/01/2016 09:21:08 09/01/2016 10:58:21 Adult health examination 077071971 Z00.01 Body mass index 25-29 - overweight 269259975 E66.3 Z68.25 Impaired g lucose tolerance 3763586 R73.02 Essential hypertension 60320307 I10 Start ACEI. LOwer sodium and caffeine. Eliminate reg. soda as discussed Test BP daily. F/u 4 weeks. Pure hypercholesterolemia 322724920 E78.00 Hypothyroidism 25428254 E03.9 Secondary peripheral neuropathy 908014 G63 dus to chronic back issues. currently nonacute. Chronic ob structive pulmonary disease 37093665 J44.9 f/u with Dr. Atkinson Eczema of leg 513419795 L30.9 F/u with derm. Anxiety state 871452603 F41.1 TRI score is in mild anxiety range. Will discuss to consider counseling . [id number] Valery Alvarez PA-C Main Office [address] [facility] [address] [facility] [place] [address] 10/20/2016 09:20:29 10/20/2016 10:42:47 Essential hypertension 18793098 I10 Restart small dose of ACEI due to diabetes diagnosis. Test BP at home daily. Continue Amlodipine 5 as per cardiology . Pure hypercholesterolemia 833247416 E78.00 MIld at this point related to diet mostly. Advised to follow low fat diet, increase exercise and lose some weight. F/u labs in 3-4 m. Needs infl uenza immunization 270478266 Z23 Declined immunizati on. Type 2 margie betes mellitus without complication 437351695 E11.9 New to diagnosis. Drinks regular soda. Advised to discontinu e and start testing glucose with One Flex touch glucose meter. Schedule diabetic review and diet review visit. Lower total calories and carbs. Interested in nutritioni st referral if PT still has questions after diabetic review. Body mass index 25-29 - overweight 015013853 E66.3 Z68.25 Will discuss diabetic diet in the next week or so. Advised to increase exercise activity and reduce fats, processed foods. Chronic ob structive pulmonary disease 79555285 J44.9 f/u with Dr. Atkinson. PT agrees to call today for refill and appt scheduling . [id number] Valery Alvarez PA-C Main Office [address] [address] [place] [address] 11/15/2016 12:49:08 11/15/2016 14:11:54 Abnormal liver function 94065131 K76.89 Administra tion of pneumococcal vaccine 11915654 Z23 Disorder o f nervous system due to type 2 diabetes mellitus 370819132 E11.40 otal time spent teaching and coordinati ng diabetic care 45 minutes. Basic physiology of Type II Diabetes Mellitus was reviewed. Glucose records were reviewed. Pt. was instructed on use of new glucose meter and advised to monitor glucose 3 times per day ; before each main meal. Goal for fasting glucose is 80-130 and 1-2 hrs after the meal under 180. Pt. was instructed on 1800 mery ADA diet and given 7 day sample menus to use at home. Pt. was advised to start exercise activity by walking 30 min at least 3 times weekly and increase weekly or by weekly to 4-6 day per week. If unable to walk , pt. should use other exercise modalities /equipment that is stationary at home or in the gym for that amount of time weekly or water exercises. Start Metformin ER 500 mg 2 po qd with supper. Repeat BMP in 5-6 weeks. Essential hypertension 79894916 I10 Increase Lisinopril to 10 mg daily. Repeat BMP prior to next visit. [id number] Valery Alvarez PA-C Main Office [address] [facility] [address] [place] [address] 01/17/2017 12:47:15 01/17/2017 13:59:44 Disorder of nervous system due to type 2 diabetes mellitus 922333772 E11.40 Pt currently on metformin ER 500 mg 2 qd with supper. Glucose is very well controlled . Continue current regimen. Follow up in 3 months. Continue regular aerobic exercise at least 3-4x/week at an interval of >45 minutes each session. Continue low carb diet and low sodium diet, limiting portion sizes.Refe r to a quality associate for orthotics and diabetic foot examinatio n. Increase Gabapentin to 300 mg BID for couple of weeks. If still symptomati c of neuropathy , will titrate up to 300 mg TID. F/u for diabetes in 3 m. Essential hypertension 30353846 I10 Pt has a history of essential HTN. Lisinopril dose increased to 10 mg daily since last visit. Today's BP: 109/69. Stable. Complains of a tickling in his throat that occurs every day. Drinks water to help sensation. Does not seem to like this side effect to the lisinopril . At this point, patient would like to continue on lisinopril for another month. If symptoms persist or they become debilitati ng, consider switching to ARB like valsartan 80 mg once daily to reduce chance of side effect. Skin lesion 16510604 L98 .9 L. upper arm , needs biopsy. Referral to derm for eval. Pain of elbow region 743 48357 M25.521 M25.522 refer to orthopedis t for cortisone injection. Needs infl uenza immunization 146616297 Z23 [id number] Valery Alvarez PA-C Main Office [address] [facility] [address] [place] [address] 05/04/2017 09:56:09 05/04/2017 11:44:15 Well controlled type 2 diabetes mellitus 677306752 E11.9 well controlled DM at this time with A1c of 6.3%. Pt will continue to take metformin as directed. will start seeing eye doctor annually. Does not need Rx refill at this time. Will F/U in 4 months. Body mass index 25-29 - overweight 566614026 E66.3 Z68.28 advised to Increase exercise activity and reduce fats, processed foods, start a low mery/ carb diet. Secondary peripheral neuropathy 087015 G63 Followed by Neurology and will continue. pt will consider increasing Gabapentin and will notify PCP if he decides he requires more pain relief [id number] Skinny Alvarez PA-C Main Office [address] [address] [place] [address] 06/21/2017 10:52:38 06/21/2017 11:56:43 Hematochezia 284246777 K62.5 ? d/t int hem vs other - will check cbc to see if anemic and get gi eval for colonoscop y (need for surveillan ce since 52 yo anyways) [id number] Valery Alvarez PA-C Main Office [address] [address] [place] [address] 09/05/2017 14:42:41 09/05/2017 15:42:10 Essential hypertension 06587426 I10 Foreign josé miguel dy in hand with infection 546326431 S60.552A L08.9 Start Abx as directed, warm compress every few hrs and Motrin 600 mg TID for pain. XRAy ordered and graciela with hand surgery for tomorrow. [id number] Valery Alvarez PA-C Main Office [address] [address] [place] [address] 10/03/2017 13:41:36 10/03/2017 14:24:38 Acute pharyngitis 463339024 J02.9 will await results of culture . PT. will take TYlenol and do gargles in the mean time. Angiotensi n-convertin g-enzyme inhibitor adverse reaction 507384087 R05 T46.4X5A D/c Lisinopril . Start Losartan 50 mg daily. Test BP daily. Let me know of readings. Med will be adjusted appropriat tila. Pt. has f/u on October 10. Pure hypercholesterolemia 530054729 E78.00 Subclinica l hypothyroidism 86553285 E03.9 repeat labs. Essential hypertension 80976888 I10 Attention deficit hyperactivity disorder 761095607 F90.1 Pt. will provide notes from his prior prescriber and meds will be reinitiate d. [id number] Valery Alvarez PA-C Main Office [address] [facility] [address] [place] [address] 10/10/2017 15:52:59 10/10/2017 16:47:34 Hypothyroidism 76343487 E03.9 Continue current meds. Essential hypertension 97307050 I10 STable on current meds. Continue testing BP periodical ly. Contiue DASH diet. Attention deficit hyperactivity disorder 990342002 F90.1 Pure hypercholesterolemia 397676851 E78.00 Start statin therapy at small dose. Repeat labs prior to next visit. Type 2 margie betes mellitus without complication 419510624 E11.9 stable control. Continue current meds. Continue diabetic diet and exercise. Return in 3 m. [id number] Valery Alvarez PA-C Main Office [address] [facility] [address] [place] [address] 01/09/2018 09:46:28 01/09/2018 10:35:05 Attention deficit hyperactivity disorder 386356646 F90.1 STable on current meds. Needs infl uenza immunization 653115562 Z23 Type 2 margie betes mellitus without complication 724035658 E11.9 stable control. Continue current meds. Continue diabetic diet and exercise. Return in 3 m. Secondary peripheral neuropathy 148749 G63 Followed by Neurology Essential hypertension 50237906 I10 STable on current meds. Continue testing BP periodical ly. Contiue DASH diet. Body mass index 30+ - obesity 849956734 Z68.30 Discussed reducing calories and sweets and increasing exercise. [id number] Carmella rogel MD Main Office [address] [facility] [address] [place] [address] 04/12/2018 09:49:08 04/12/2018 10:50:09 Type 2 diabetes mellitus without complication 200480824 E11.9 stable control. Continue current meds. Continue diabetic diet and exercise. Return in 3 m. Attention deficit hyperactivity disorder 390766643 F90.1 STable on current meds. Essential hypertension 95891190 I10 STable on current meds. Continue testing BP periodical ly. Contiue DASH diet. Pure hypercholesterolemia 257128532 E78.00 Start statin therapy at small dose. Repeat labs prior to next visit. Hypothyroidism 51976375 E03.9 Continue current meds. Diabetic p eripheral neuropathy 598823319 E11.40 F/u with the neurologis t. Continue Tegretol. [id number] Anthony Jackson MD Main Office [address] [facility] [address] [place] [address] 07/09/2018 09:10:28 07/09/2018 10:14:33 Diabetic peripheral neuropathy 056121287 E11.40 F/u with the neurologis t. Continue Tegretol. Attention deficit hyperactivity disorder 248493568 F90.1 Stable on current meds. Abnormal l iver function 50428571 K76.89 ? fatty liver . will set up for abd. ultrasound . Hepatitis studies are normal. Type 2 margie betes mellitus without complication 233906180 E11.9 stable control. Continue current meds. Continue diabetic diet and exercise. Return in 3 m. Essential hypertension 30636119 I10 STable on current meds. Continue testing BP periodical ly. Continue DASH diet. Pure hypercholesterolemia 613415107 E78.00 Continue statins as directed , continue low fat diet. Hypothyroidism 17716078 E03.9 Continue current meds. Moderate p ersistent asthma 121062511 J45.40 stable oncurrent meds. [id number] Anthony Jackson MD Main Office [address] [facility] [address] [place] [address] 10/15/2018 09:05:31 10/15/2018 10:34:56 Adult health examination 092401100 Z00.00 pneumovax 23 administer ed. Attention deficit hyperactivity disorder 106486514 F90.1 Stable on current meds. Diabetic p eripheral neuropathy 746358339 E11.40 F/u with the neurologis t. Continue Tegretol.F /u with neurologis t Hypothyroidism 67081036 E03.9 Continue current meds. Angina pectoris 80229954 0 I20.9 no new chest pain Essential hypertension 27491505 I10 Stable on current meds. Continue testing BP periodical ly. Continue DASH diet. Pure hypercholesterolemia 665990846 E78.00 Continue statins as directed , continue low fat diet. Moderate p ersistent asthma 926391563 J45.40 stable on current meds. Displaceme nt of lumbar intervertebral disc without myelopathy 96845262 M51.26 no current issues. Screening for malignant neoplasm of prostate 267974883 Z12.5 Disorder o f nervous system due to type 2 diabetes mellitus 038514377 E11.40 stable control on current meds. Cotinue testing and low mery diet. F/u 3-4 m. Administra tion of pneumococcal vaccine 35831540 Z23 [id number] Anthony Jackson MD Main Office [address] [place] [address] 01/14/2019 10:31:11 01/14/2019 11:29:24 Attention deficit hyperactivity disorder 747643645 F90.1 Stable on current meds. Disorder o f nervous system due to type 2 diabetes mellitus 556597502 E11.40 Stable diabetes . Continue metformin. Right uppe r quadrant pain 730758558 R10.11 evidence of cholelithi asis on abd ultrasound in May. Recurrent pains. Will recom. to see general surgery for consult.Pt . declines at this time. Hypothyroidism 44694771 E03.9 Continue current meds. Repeat labs inn April. Dizziness 416980081 R42 ? vertigo vs anemia or electrolyt e imbalance. Will check labs. [id number] Daniel Cain MD Main Office [address] [place] [address] 02/21/2019 15:21:36 02/21/2019 16:21:06 Acute asthma 177741838 J45.901 Will do a predisone taper to get control of sx and try different ICS which is less expensive but will given him control. Albuterol prn, call if this is not helping in the next few days to a week. Discussed prednisone affecting BS, pt will watch and call if has sig hyperglyce aysha. Moderate p ersistent asthma 323589882 J45.40 see if advair less expensive [id number] Daniel Cain MD Main Office [address] [place] [address] 03/21/2019 09:22:41 03/21/2019 10:20:43 Persistent cough 264351852 R05 Will do cxr, treat for possible pneumonia/ bronchitis with antibiotic s. Cough med prn. Call if not improving within a few days to a week, sooner if worsening. Will stay on present BP meds as reassess chronic cough once this illness is better. Consider stoppin ARB, pulmonary evaluation /PFTs. Pt to followup in a month. Wheezing 49091821 R06.2 Start wixela today (will try to avoid oral prednisone ), updraft first, then proair as needed. Keep hydrated [id number] Daniel Cain MD Main Office [address] [facility] [address] [place] [address] 04/17/2019 08:54:04 04/17/2019 09:37:57 Attention deficit hyperactivity disorder 090011030 F90.9 stable, will renew for 3 mos, sent rx for this month yesterday. Followup 3 mos with Valery Disorder o f nervous system due to type 2 diabetes mellitus 962834170 E11.49 hgba1c more elevated than in the past. Disussed need to cut out sweets and snacks, pt agrees and will change diet. He is aware of nutrition guidelines . Diabetic p eripheral neuropathy 741457624 E11.40 follows with neurology, takes carbamazep ine which helps. Recommened daily foot check Mild persi stent asthma 638670477 J45.30 much improved with daily wixela, will decrease dose to 250 to see if this is adequate to control sx. Call prn if flares. [id number] Carmella rogel MD Main Office [address] [facility] [address] [place] [address] 05/25/2019 10:47:17 05/26/2019 09:56:55 Sciatica 52612636 M54.31 right side, making it hard to walk, hx of L4L5 back surgery years ago, has been overdoing it with heavy lifting. pt will continue motrin 800mg tid with food, add cyclobenza roma for spasm, known not to drive after taking med, percocet as needed, and has gabapentin 300mg will take tid, will write a work note for this week to be out and reeval by phone visit in 5 days to assess readiness to return to work [id number] Carmella rogel MD Main Office [address] [facility] [address] [place] [address] 05/26/2019 13:37:41 05/26/2019 16:28:12 Low back pain 983429448 M54.5 see hx Lumbar radiculopathy 128 137046 M54.16 add prednisone due to continued pain. follow up KENNETH visit with me in 4 days to address if more narcotics are needed and effet of prednisone . also increase gabapentin to 600mg tid [id number] Carmella rogel MD Main Office [address] [facility] [address] [place] [address] 05/30/2019 09:05:40 05/30/2019 11:39:14 Lumbar radiculopathy 133056185 M54.16 on right, today with right leg numbness no weakness. no foot drop, much less pain form one week ago but still with pain, pt is nervous about getting a foot drop, had that before lumbar surgeryw ith Dr Phillips years ago but no weakness today. will put in referral to Dr Phillips, telehealth visit if possible, pt would like reassuranc e, pt to call if any foot drop or worsening, finish prednisone , continue motrin, gabapentin and flexeril. will see if Dr Phillips is still local, message put to our faculty research assistant Diabetic p eripheral neuropathy 094090059 E11.40 making this more difficult for pt due to baseline neuropathy [id number] Carmella rogel MD Main Office [address] [facility] [address] [place] [address] 06/06/2019 09:00:50 06/06/2019 10:16:24 Lumbar radiculopathy 365910698 M54.16 see HPI. saw neurologis t, ankle reflex is down, having MRI and EMG next week, depending on results will get Dr Phillips or pain management involved or both. 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 note for 2 weeks Neuropathy 099687817 G62 .9 EMG, saw neurology [id number] Carmella rogel MD Main Office [address] [facility] [address] [place] [address] 06/12/2019 07:54:42 06/12/2019 10:14:47 Lumbar radiculopathy 145258595 M54.16 EMG abn as per neurology. Prolapsed lumbar intervertebral disc 216190537 M51.26 MRI with large lumbar disc herniation , it all began after lifting a heavy car part. hx of low back surgery, PT is unable to work, cannot bend, lift, twist or anything but gentle walking around house. awaiting appt with neurosurge ry and pt needs to be out of work indefinate ly. [id number] Carmella rogel MD Main Office [address] [facility] [address] [place] [address] 06/19/2019 09:34:53 06/19/2019 11:43:38 Displacement of lumbar intervertebral disc without myelopathy 86643171 M51.26 will see neurosurge on in person in 2 weeks, I will have pt see [facility] before then to get evaluated, out of work on short term disability [id number] Anthony Jackson MD Telehealt h 36[address] [facility] [address] [place] [address] 07/15/2019 08:25:09 07/15/2019 13:07:30 Attention deficit hyperactivity disorder, predominantly hyperactive impulsive type 5060507 F90.1 stable , continue current medication . Disorder o f nervous system due to type 2 diabetes mellitus 080303415 E11.40 Stable diabetes . Repeat labs. Continue metformin. Continue under neurology for the neuropathy which is combinatio n of diabetic and lumbar disc disease. continue gabapentin for now. Essential hypertension 22633547 I10 Stable on current meds. Continue testing BP periodical ly. Continue DASH diet. Hypothyroidism 71759034 E03.9 Continue current meds. Repeat labs inn April. Pure hypercholesterolemia 489840566 E78.00 Continue statins as directed , continue low fat diet. Primary er ectile dysfunction 036055006 N52.9 check testostero ne level. ? vascular , gabapentin and low back nerve compressio n. [id number] Carmella rogel MD Main Office [address] [facility] [address] [place] [address] 07/21/2019 13:29:02 07/21/2019 14:31:44 Pre-surgery evaluation 212938250 Z01.818 Patient is at low risk for cardiopulm onary complicati ons with planned procedure based on comorbidit ies, good exertional tolerance and overall procedure risk. Patient advised to avoid and NSAIDS for 7 days prior. May proceed to scheduled surgery as planned. Hold metformin for 24 hours, no ADHD med on day of surgery, take wixela in am of surgery. Herniation of lumbar intervertebral disc with sciatica 6380783820 74342 M51.16 pt having surgery to repair disc Essential hypertension 88770574 I10 BP good today, taking meds regularly Moderate p ersistent asthma 717834721 J45.40 controlled on wixela [id number] Shekhar Jolley MD Main Office [address] [facility] [address] [place] [address] 09/30/2019 09:44:36 09/30/2019 10:59:12 Renal disorder due to type 2 diabetes mellitus 951650108 E11.21 very good diabetic control. continue metformin , diet and exercise activity. Diabetic eye exam is due in October. Diabetic p eripheral neuropathy 381952717 E11.40 F/u with the neurologis t. Chronic ki dney disease stage 1 307277764 N18.1 continue ARB Essential hypertension 29644470 I10 Stable on current meds. Continue testing BP periodical ly. Continue DASH diet. Attention deficit hyperactivity disorder, predominantly hyperactive impulsive type 6294511 F90.1 stable , continue current medication . Hypothyroidism 92890800 E03.9 Continue current meds. Injury of great toe 2827 53736 S99.921A REcommend to see quality associate regularly for nail and foot care due to significan t t peripheral neuropathy . Avoid wearing open toe shoes or walk barefoot. [id number] Anthony Jackson MD Main Office [address] [facility] [address] [place] [address] 01/02/2020 09:42:23 01/02/2020 11:03:08 Adult health examination 374668357 Z00.00 vaccines are up to date. Diabetic p eripheral neuropathy 877815649 E11.40 F/u with the neurologis t.Continue tegretol and gabapentin . Essential hypertension 82885670 I10 Stable on current meds. Continue testing BP periodical ly. Continue DASH diet. Moderate p ersistent asthma 329794597 J45.40 stable on current meds. Primary er ectile dysfunction 260963912 N52.9 F/u with urology and continue sildenafil Pure hypercholesterolemia 160633582 E78.00 Continue statins as directed , continue low fat diet. Steatotic liver disease 231265830 K76.0 stable with weight loss. Hypothyroidism 17214823 E03.9 Continue current meds. Prediabetes 134173535 R7 3.03 continue low carb diet and weight loss. repeat labs in january. Attention deficit hyperactivity disorder, predominantly hyperactive impulsive type 1925886 F90.1 Increase medication dosage . F/u in 2-4 weeks if any issues. Otherwise in 3 m. [id number] Valery Alvarez PA-C Main Office [address] [facility] [address] [place] [address] 03/26/2020 10:39:34 03/26/2020 11:40:23 Attention deficit hyperactivity disorder, predominantly hyperactive impulsive type 1531346 F90.1 Continue current meds. Bilateral tinnitus 71558 67033 102 H93.13 refer to ENT for further eval. and hearing test. Erectile dysfunction 860 142770 F52.21 [id number] Valery Alvarez PA-C Main Office [address] [facility] [address] [place] [address] 07/23/2020 13:45:51 07/23/2020 14:40:12 Diabetic peripheral neuropathy 721210649 E11.40 F/u with the neurologis t.Continue tegretol and gabapentin . Essential hypertension 19297813 I10 Stable on current meds. Continue testing BP periodical ly. Continue DASH diet. Pure hypercholesterolemia 316574958 E78.00 Continue statins as directed , continue low fat diet. Disorder o f nervous system due to type 2 diabetes mellitus 380205679 E11.40 Stable diabetes . Repeat labs. Continue metformin but lower to 500 mg daily at biggest meal. .Continue under neurology for the neuropathy which is combinatio n of diabetic and lumbar disc disease. continue gabapentin for now. Attention deficit hyperactivity disorder, predominantly hyperactive impulsive type 5441251 F90.1 Continue current meds. No issues. [id number] Daniel Cain MD Main Office [address] [facility] [address] [place] [address] 11/02/2020 08:48:10 11/02/2020 09:31:19 Type 2 diabetes mellitus without complication 697768177 E11.9 stable control. Continue current meds. Continue diabetic diet and exercise. Return in 3 m. Attention deficit hyperactivity disorder, predominantly hyperactive impulsive type 9257642 F90.1 Continue current meds. No issues. [id number] Evans Gamboa MD Main Office [address] [facility] [address] [place] [address] 02/01/2021 09:01:24 02/01/2021 10:07:55 Adult health examination 820143842 Z00.00 vaccines are up to date. Attention deficit hyperactivity disorder, predominantly hyperactive impulsive type 9286843 F90.1 Continue current meds. No issues. Diabetic p eripheral neuropathy 193871227 E11.40 F/u with the neurologis t.Continue tegretol and gabapentin . Displaceme nt of lumbar intervertebral disc without myelopathy 44729464 M51.26 no current issues. Erectile dysfunction 860 120029 F52.21 Uses Sildenafil . Essential hypertension 16231716 I10 Stable on current meds. Continue testing BP periodical ly. Continue DASH diet. Hypothyroidism 64011683 E03.9 Continue current meds.Repea t TSH in February. Moderate p ersistent asthma 199284145 J45.40 stable on current meds.F/u with pulmonary as scheduled. Pure hypercholesterolemia 150566848 E78.00 Continue statins as directed , continue low fat diet. Steatotic liver disease 062622016 K76.0 stable with weight loss. [id number] Daniel Cain MD Telehealt h 36[address] [facility] [address] [place] [address] 02/22/2021 11:58:15 03/01/2021 09:27:06 Exacerbation of moderate persistent asthma 850134929 J45.41 suspect asthma exac - will empiricall y rx c pred pulse and zpak in hopes of keeping pt out of the hospital Pneumonia 429790816 J18. 9 recommend probiotics while on abx Dyspnea 255856966 R06.00 pt requested refill [id number] Shekhar Jolley MD Main Office [address] [facility] [address] [place] [address] 04/26/2021 09:20:54 04/26/2021 10:25:33 Diabetic peripheral neuropathy 378518009 E11.40 F/u with the neurologis t.Continue tegretol and gabapentin . repeat labs prior to next visit. Essential hypertension 48166977 I10 Check BP weekly and continue current meds. Continue low sodium low caffeine diet. Hypothyroidism 57383294 E03.9 Continue current meds.Repea t TSH in February. [id number] Shekhar Jolley MD [facility] [address] [address] 06/23/2021 08:34:30 06/24/2021 09:22:20 Upper respiratory infection 75849657 J06.9 Exacerbati on of moderate persistent asthma 126578431 J45.41 [id number] Anthony Jackson MD [facility] [address] [address] 09/09/2021 11:41:17 09/12/2021 11:23:02 Exacerbation of moderate persistent asthma 719553772 J45.41 [id number] Evans Gamboa MD Main Office [address] [address] 10/18/2021 13:29:43 10/18/2021 14:19:13 Diabetic peripheral neuropathy 449485904 E11.40 F/u with the neurologis t and quality associate . Attention deficit hyperactivity disorder, predominantly hyperactive impulsive type 1080469 F90.1 Continue current meds. No issues. Disorder o f nervous system due to type 2 diabetes mellitus 653444812 E11.40 Stable diabetes . Repeat labs fasting and urine. Continue metformin but lower to 500 mg daily at biggest meal. .Continue under neurology for the neuropathy which is combinatio n of diabetic and lumbar disc disease. continue gabapentin and tizanidine . Pt. will hold carbamazep ine . F/u 3 m. Essential hypertension 58828863 I10 Stable BP on losartan. repeat labs. Continue low sodium diet. Pure hypercholesterolemia 122864668 E78.00 Continue statins as directed , continue low fat diet. Cramp in lower limb 4499 54437 R25.2 [id number] MAGDALENA GALLOWAY MD Main Office [address] [address] 12/22/2021 13:40:22 12/23/2021 09:34:22 COVID-19 572544778 U07.1 - pt has been vaccinated for covid-19- Tylenol OTC, not to exceed package insert for pain or fever q4-6h advised prn. Counselled on not exceeding more than 3g/day.- Throat Lozenges otc prn for sore throat- Saltwater gargle- Adequate hydration enforced- Saline sprays- Humidifier use enforced- After discussion , no paxlovid was sent as patient's symptoms are mild. pt was told that medication could be sent within the next 3 days if symptoms worsen- Also advised can use a teaspoon honey for cough- Isolation precaution discussed- Precaution advised if any difficulty breathing or tmax 103 > go to nearest ED- Pt did not need a work note [id number] Evans Gamboa MD Main Office [address] [facility] [address] [place] [address], [place] [address] 02/28/2022 14:52:20 02/28/2022 15:40:36 Adult health examination 244662325 Z00.00 vaccines: recommend flu vac. Disorder o f nervous system due to type 2 diabetes mellitus 738456708 E11.40 Stable diabetes . continue current meds, testing and low carb diet. Repeat bmp. F/u 3 m. Essential hypertension 19874879 I10 Stable BP on losartan. repeat labs. Continue low sodium diet. Moderate p ersistent asthma 970357658 J45.40 stable on current meds.F/u with pulmonary as scheduled. Pure hypercholesterolemia 823475842 E78.00 Continue statins as directed , continue low fat diet. Screening for malignant neoplasm of colon 242326748 Z12.11 Diabetic p eripheral neuropathy 147466828 E11.40 F/u with the neurologis t and quality associate . Hypothyroidism 69960650 E03.9 Continue current meds. Repeat TSH yearly. Cholelithi asis with obstruction 77928760 K80.81 no recurrence . Bilateral tinnitus 69624 70015 102 H93.13 very mild at this point. Displaceme nt of lumbar intervertebral disc without myelopathy 53626474 M51.26 no current issues. Erectile dysfunction 860 853406 F52.21 Uses Sildenafil . Left ventr icular hypertrophy 36593510 I51.7 f/u with cardiologi st as scheduled. Attention deficit hyperactivity disorder, predominantly hyperactive impulsive type 2971142 F90.1 Continue current meds. Angina pectoris 55880517 0 I20.9 no new chest pain, f/u with cardiologi st. Steatotic liver disease [id number] K76.0 Benign pro static hyperplasia [id number] N40.0 [id number] Evans Gamboa MD Main Office [address] [address] [place] [address] 06/02/2022 14:53:27 06/02/2022 15:37:25 Diabetic peripheral neuropathy 767386872 E11.40 F/u with the neurologis t and quality associate . Attention deficit hyperactivity disorder, predominantly hyperactive impulsive type 9437583 F90.1 Continue current meds. Hypothyroidism 04516353 E03.9 Continue current meds. Repeat TSH yearly. Pure hypercholesterolemia 519628573 E78.00 Continue statins as directed , continue low fat diet. [id number] Evans Gamboa MD Telehealt [address] [address] [place] [address] 07/10/2022 13:43:35 07/10/2022 15:27:17 Nausea 110058074 R11.0 r/o gastritis due to H.Pylori, gallbladde r disease, pancreatit is. Gastroesop hageal reflux disease 597834055 K21.9 [id number] Evans Gamboa MD Main Office [address] [address] [place] [address] 10/11/2022 15:54:49 10/11/2022 16:30:41 Diabetic peripheral neuropathy 250835306 E11.40 F/u with the neurologis t and quality associate . Disorder o f nervous system due to type 2 diabetes mellitus 051680593 E11.40 Stable diabetes , but nausea side effect from metfromin. we will stop metformin and try Jardiance 10 mg . Repeat bmp in 4 weeks. Increase hydration. Possible side effects of increased urination and thirst as well as hypokalemi a were discussed with pt. F/u 3 m. Attention deficit hyperactivity disorder, predominantly hyperactive impulsive type 8092720 F90.1 Continue current meds. [id number] Evans Gamboa MD Main Office [address] [place] [address] 12/20/2022 10:28:48 12/20/2022 11:00:17 Disorder of nervous system due to type 2 diabetes mellitus 342894203 E11.40 Stable diabetes , but nausea side effect from metfromin. we will stop metformin and try Jardiance 10 mg . Repeat bmp in 4 weeks. Increase hydration. Possible side effects of increased urination and thirst as well as hypokalemi a were discussed with pt. F/u 3 m. repeat bmp in 6 weeks. Attention deficit hyperactivity disorder, predominantly hyperactive impulsive type 0118621 F90.1 Continue current meds. Lesion of skin of face 0824245220 06 L98.9 refer to dermatolog ist [id number] Valery Alvarez PA-C Main Office [address] [address] [place] [address] 04/20/2023 09:51:19 04/20/2023 11:05:02 Adult health examination 968245803 Z00.00 vaccines: recommend flu vac. Tetanus is due. Requires a tetanus booster 786016866 Z28.39 Tetanus booster today. Repeat in 10 years Essential hypertension 08623500 I10 Stable BP current bp medication s. Continue low sodium diet Diabetic p eripheral neuropathy 400687291 E11.40 F/u with the neurologis t and quality associate . Attention deficit hyperactivity disorder, predominantly hyperactive impulsive type 5635777 F90.1 Continue current meds. Disorder o f nervous system due to type 2 diabetes mellitus 794435222 E11.40 A1C stable at 6.6%. Pt reporting increased urination since initiation of jardiance 10mg. Will obtain further labs to evaluate other causes of urinary frequency. Discussed importance of maintainin g a diabetic diet and routine exercise.P eripheral neuropathy followed by Neurology. Continue gabapentin and monitor for worsening symptoms. Erectile dysfunction 860 367729 F52.21 Uses Sildenafil . Hypothyroidism 52056851 E03.9 Continue current meds. Repeat TSH. Moderate p ersistent asthma 337753337 J45.40 stable on current meds.F/u with pulmonary as scheduled. Primary er ectile dysfunction 933217794 N52.9 F/u with urology and continue sildenafil Pure hypercholesterolemia 930503754 E78.00 Continue statins as directed , continue low fat diet. Steatotic liver disease 186564038 K76.0 AST and ALT stable, continue to monitor. Displaceme nt of lumbar intervertebral disc without myelopathy 67479382 M51.26 no current issues. Gastroesop hageal reflux disease 375712646 K21.9 Pt well controlled on lifestyle modificati on's. Fatigue 08579256 R53.83 Pt reports ongoing daytime fatigue. Pt has had 15lb weight loss since Dec 2022. Will check including tyroid, blood count, chemistry and PSA. If all in range, recommend to be seen by sleep medicine to screen for sleep d/o. Increased frequency of urination 977605220 R35.0 Pt reporting increased urination since initiation of Jardiance 10 mg. Will asses alternate causes of increased urination and continue to monitor symptoms. Check PSA [id number] Daniel Cain MD Main Office [address] [facility] [address] [place] [address] 08/03/2023 09:52:26 08/03/2023 10:48:45 Disorder of nervous system due to type 2 diabetes mellitus 663316631 E11.40 A1C stable at 6.5%. Pt reporting increased urination since initiation of jardiance 10mg. Is still urinating more frequently but states it does not bother him. Discussed importance of maintainin g a diabetic diet and routine exercise.P eripheral neuropathy followed by Neurology. Continue gabapentin , tizanidine , carbamazep ine, and monitor for worsening symptoms.L ast microalbum in three months ago was normal.F/u 3 m Vitreous detachment 5377 2006 H43.819 Diagnosed by ophthalmeliza chi one month ago, has had floaters in vision of left eye and has repeat dilated eye exam today with ophthalmeliza chi after this appointmen t. Diabetic p eripheral neuropathy 558806253 E11.40 F/u with the neurologis t and quality associate . Continue gabapentin . Essential hypertension 95460667 I10 Stable BP current bp medication s. Continue low sodium diet Pure hypercholesterolemia 643494466 E78.00 Continue statins as directed , continue low fat diet. Attention deficit hyperactivity disorder, predominantly hyperactive impulsive type 7922440 F90.1 Continue current meds. TRI-7 was 8 today due to situationa l life stressors lately. Has felt stable on current meds and feels generally well otherwise. Exacerbati on of moderate persistent asthma 933328836 J45.41 Worsening of moderate persistent asthma last 4 weeks due to allergies and exposure to constructi on particles. Recom to increase Wixela to 500 mg dose BID for 1-2 months until symptoms are back to baseline , then go down do maintenanc e dose. F/u with pulm as scheduled. / [id number] Daniel Cain MD Main Office [address] [place] [address] 11/05/2023 09:57:46 11/05/2023 10:52:48 Diabetic peripheral neuropathy 606177748 E11.40 F/u with the neurologis t and quality associate . Continue gabapentin . Disorder o f nervous system due to type 2 diabetes mellitus 789861583 E11.40 A1C today at 6.4%. Pt reporting increased urination since initiation of jardiance 10mg. Is still urinating more frequently but states it does not bother him. Discussed importance of maintainin g a diabetic diet and routine exercise.P eripheral neuropathy followed by Neurology. Continue gabapentin , tizanidine , carbamazep ine, and monitor for worsening symptoms.L ast microalbum in in April was normal.F/u 3 m. Essential hypertension 85474150 I10 Stable BP current bp medication s. Continue low sodium diet Attention deficit hyperactivity disorder, predominantly hyperactive impulsive type 0915051 F90.1 Has not been able to slat pickler Adderall recently. Continue current meds. Last TRI-7 was 8 due to situationa l life stressors lately. Has felt stable on current meds and feels generally well otherwise. Hyperlipidemia 32789764 E78.5 [id number] Daniel Cain MD Main Office [address] [facility] [address] [place] [address] 02/08/2024 14:26:17 02/08/2024 15:00:48 Disorder of nervous system due to type 2 diabetes mellitus 336955364 E11.40 A1C today at 6.5%. Continue jardiance 10 mg , losartan, diabetic diet.Perip heral neuropathy followed by Neurology. Continue gabapentin , tizanidine , carbamazep ine, and monitor for worsening symptoms.L ast microalbum in in April was normal.F/u 3 m. Essential hypertension 01561198 I10 Stable BP current bp medication s. Continue low sodium diet Attention deficit hyperactivity disorder, predominantly hyperactive impulsive type 4410450 F90.1 Has not been able to slat pickler Adderall recently. Continue current meds. Last TRI-7 was 8 due to situationa l life stressors lately. Has felt stable on current meds and feels generally well otherwise. [id number] Shekhar Jolley MD Main Office [address] [facility] [address] [place] [address] 04/23/2024 14:18:29 04/23/2024 16:02:52 Adult health examination 164491857 Z00.00 vaccines: recommend to update Tdap in pharmacy and receive Prevnar 20 and shingrix. UTD on colonoscop y, screening due in 2027. Disorder o f nervous system due to type 2 diabetes mellitus 624327528 E11.40 A1C today at 6.6%. Continue jardiance 10 mg, losartan, and diabetic diet.Perip heral neuropathy followed by Neurology. Continue gabapentin , tizanidine , carbamazep ine, and monitor for worsening symptoms. Plan is to repeat CMP and CBC. Essential hypertension 52563512 I10 Stable BP current bp medication s. Continue low sodium diet Attention deficit hyperactivity disorder, predominantly hyperactive impulsive type 0349263 F90.1 stable on current meds. Erectile dysfunction 860 772559 F52.21 Uses Sildenafil . Hypothyroidism 69545399 E03.9 Continue current meds. Repeat TSH. Moderate p ersistent asthma 621597529 J45.40 stable on current meds. f/u with pulmonary as scheduled. recommend to receive Prevnar 20 vaccine. Gastroesop hageal reflux disease 263181227 K21.9 Pt well controlled on lifestyle modificati on's. Steatotic liver disease 117187963 K76.0 AST and ALT stable, continue to monitor. Pure hypercholesterolemia 735968479 E78.00 Continue statins as directed , continue low fat diet. Will continue to monitor lipids. Primary er ectile dysfunction 590694316 N52.9 F/u with urology and continue sildenafil Vitreous detachment 5377 2006 H43.819 Followed by ophthalmol alon, last seen in march 2024. Chest pain on exertion 35050133 R07.89 Reports new onset of exertional burning chest pain x4 weeks that occurs only with physical activity, relieved with rest. ECG revealed flat-T waves in 3 inferior leads. Will refer for nuclear stress test. Avoid exertional activity. Take ASA 81 mg daily. Go to the ER if chest pain persists after cessation of activity. Requires a tetanus booster 851939838 Z28.39 Tetanus booster today. Repeat in 10 years Administra tion of pneumococcal vaccine 38973299 Z23 Varicella vaccination 68 056842 Z23 Nocturia 035753410 R35.1 retest PSA. [id number] Shekhar Jolley MD Main Office [address] [address] 07/23/2024 14:16:55 07/23/2024 15:19:17 Disorder of nervous system due to type 2 diabetes mellitus 480823944 E11.40 A1C today at 6.3% and stable. Continue jardiance 10 mg, losartan, and diabetic diet.Perip heral neuropathy followed by Neurology. Continue gabapentin , tizanidine , carbamazep ine, and monitor for worsening symptoms. Labs are recent and all stable. F/u 4 m. Attention deficit hyperactivity disorder, predominantly hyperactive impulsive type 5175094 F90.1 stable on current meds. Essential hypertension 64472716 I10 Stable BP current bp medication s. Continue low sodium diet and current meds. Prinzmetal angina 302832 02 I20.1 3486 Recent NM stress test was unremarkab le. Pt seen by cardiology in f/u as well. [id number] Daniel Cain MD Main Office [address] [address] 11/21/2024 09:52:20 11/21/2024 10:36:20 Disorder of nervous system due to type 2 diabetes mellitus 419835149 E11.40 A1C today at 6.4% and stable. Continue jardiance 10 mg, losartan, and diabetic diet.Perip heral neuropathy followed by Neurology. Continue gabapentin , tizanidine , carbamazep ine, and monitor for worsening symptoms. Labs are recent and all stable. F/u 4 m. Attention deficit hyperactivity disorder, predominantly hyperactive impulsive type 4109895 F90.1 stable on current meds. Diabetic p eripheral neuropathy 295872164 E11.40 F/u with the neurologis t and quality associate . Continue gabapentin . Essential hypertension 86011527 I10 Stable BP current bp medication s. Continue low sodium diet and current meds. Metabolic dysfunction-associate d steatohepatitis 886062249 K75.81 [id number] Repeat liver ultrasound . Consider use of semaglutid e. [id number] MAGDALENA GALLOWAY MD Main Office [address] [facility] [place] [address] 12/11/2024 09:26:58 12/11/2024 10:05:33 Preprocedural examination done 4380947730 27224 Z01.818 216968 - Patient has scheduled cataract repair surgeries with SUMIT EDMOND MD NPI #[id number] / Cataracts RT eye 12/15/24 & LT eye 12/29/24.- No lab or EKG evaluation requested by surgeon- Ludmila CV risk score is 0.02%. Patient is at low risk for cardiopulm onary complicati ons with planned procedure based on comorbidit ies, good exertional tolerance and overall procedure risk.- Pt advised to avoid aspirin and NSAIDS for 7 days prior. Medically stable to proceed with surgery as planned. Sinusitis 56014577 J30.9 1798126 - Patient presenting with nasal congestion x 1 month, with no other reported symptoms. H+P representa tive of allergic etiology and congestion also likely exacerbate d by daily Afrin use- Discontinu e use of Afrin given high likelihood of rebound congestion - Initiate Flonase allergy relief nasal spray daily- Patient may try other antihistam laura for management as Claritin has not been effective, such as cetirizine , fexofenadi ne.- Notify surgeon if symptoms are worsening prior to scheduled cataract surgeries, if symptoms become more suggestive of a sinus infection or other acute illness Health Concerns Section Related Observation LastModified by Organization Detai ls LastModified Time None Recorded Concern Status LastModified by Organization Details LastModified Time None Recorded Advance Directives Directive Y: 09/01/2016 Payers Insurance Date Sequence Insurance Name Policy Number Policy Camacho Covered Member ID Camacho Member ID Guarantor Name 04/09/2018 1 [employer] [facility] ([place]) [id number] Akhil Randall [id number] Akhil Randall 02/15/2022 1 [facility] [employer] (PPO) BELEN Randall [id number] Akhil Randall 04/09/2018 1 [employer] (PPO) Akhil Ruthcindy [id number] Akhil Randall 04/09/2018 1 [employer] [place] (PPO) Akhil Randall [id number] Akhil Randall 12/11/2024 1 [place] [facility] [id number] Akhil Perez Mignon [id number] Akhil Randall 04/09/2018 1 [employer] (PPO) Akhil Randall [id number] Akhil Randall Notes Date Note Type Note Provider Name and Address Organization Details Recorded Time 02/08/2024 text/html Hypertension F/UReported by PatientHPIFor associated symptoms, patient reportsno dizziness,no lightheadedness,no chest pain,no shortness of breath,no palpitations,no edema, andno calf pain with exertion. For lifestyle, patient reportsregular exerciseandlimiting/av oiding salt. For medications, patient reportstaking medications as directed,no side effects from medication, andchecks blood pressure at home, range:.stable HTN on losartan and amlodipine 5mg. Diabetes F/UReported by PatientHPIFor context, patient reportsnot taking aspirin dailyandside effects from medicationsbut reportsnormal range of home blood sugars (in the low 100s),seeing eye doctor regularly,checking feet regularly, andnot missing doses of medications. For associated symptoms, patient reportsnumbness of feetbut reportsno dizziness,no sweats,no headaches,no confusion,no increased thirst,no increased appetite,no increased urination, andno blurred vision.A1c today 6.5%. Meds: Jardiance 10 mg daily. Losartan 50 mg.Overall diabetic control is stable.Weight is stable.Diet --- low calories/low carb. Has cut out all sodas, now drinking flavored water without salt or added sugars. Still eating ice cream and cookies.Exercises 3-4 times weekly.Stable diabetic periperal neuropathy over imposed on neuropathy due to lumbar disc disease with myelopathy with past h/o surgery. 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 He states he always feels like there is something in his eye and droopy eyelids. Denies improvement or worsening. Last dilated eye exam neg for retinopathy beginning of the year.ROS as noted in the HPI 59 year old male presents for diabetes , HTN and ADD follow up. ADHD: stable on current dose of medication. Valery Alvarez PA-C [address] [address], [place], [address], [facility] 02/08/2024 15:06:56 04/23/2024 text/html Hypertension F/UReported by PatientHPIFor associated symptoms, patient reportsno dizziness,no lightheadedness,no chest pain,no shortness of breath,no palpitations,no edema, andno calf pain with exertion. For lifestyle, patient reportsregular exerciseandlimiting/av oiding salt. For medications, patient reportstaking medications as directed,no side effects from medication, andchecks blood pressure at home, range:.stable HTN on losartan and small dose amlodipine. Diabetes F/UReported by PatientHPIFor context, patient reportsnot taking aspirin dailybut reportsnormal range of home blood sugars (in the low 100s),seeing eye doctor regularly,checking feet regularly, andnot missing doses of medications. For associated symptoms, patient reportsweight gain (___ lbs),weight loss (15 lbs), andnumbness of feetbut reportsno dizziness,no sweats,no headaches,no confusion,no increased thirst,no increased appetite,no increased urination, andno blurred vision. For review finger sticks, patient reportsfasting: ___,post breakfast: ___,post lunch: ___, andpost dinner: ___.HgA1c 6.6% todayDiet --- low calories/low carb.Exerices 3-4 times weekly. Diabetic periperal neuropathy over imposed on neuropathy due to lumbar disc disease with myelopathy with past h/o surgery. Pt. see neurologist and is on gabapentin, carbamazepine small dose and tizanidine was just added to take at night. PT. is planning to hold carbamazepine and try tizanidine.Meds: Jardiance 10 mg. Generic HPI TemplateReported by Patient PHQ is 0. TRI is 2.Vaccines: PT. is due for Tdap. up to date on COVID booster. Needs Prevnar 20 and shingrix.Colonoscopy in 2022 with 5 year recall.PSA screen normal in 2023.Stable ADHD on meds.Hypothyroidism is stable on meds.MOderate persistnet asthma is also stable on meds.ROS as noted in the HPI 59 y/o male presents for his annual physical. He has an acute concern for new onset burning exertional chest pain across the entire top of the chest radiating to the shoulders. Associated with SOB. He first noticed it about 4 weeks ago when he was shoveling snow. Lasts only as long as the physical activity. Reports it has been more frequently, with any activity. Hx of Prinzmetal angina, was followed by cardiology until 2018. Reports does NOT feel similar to previous episodes of angina. ECG in office reveals flat T waves in 3 inferior leads.He is currently UTD on his colonoscopy, due in 2027. Also due for Tdap, Prevnar, and Shingles vaccines. She sees podiatry every 6 weeks, checks feet daily. He reports his feet are almost completely numb and he has shooting pain that travels up his leg on the right side. He is managed by neurology for severe neuropathic pain and numbness, who he sees annually. He recently had his COVID booster on Sunday. He reports mostly healthy meals, but snacks on sugary foods frequently. 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 Valery Alvarez PA-C [address] [address], [place], [address], [facility] 04/23/2024 16:54:56 07/23/2024 text/html Hypertension F/UReported by PatientHPIFor associated symptoms, patient reportsno dizziness,no lightheadedness,no chest pain,no shortness of breath,no palpitations,no edema, andno calf pain with exertion. For lifestyle, patient reportsregular exerciseandlimiting/av oiding salt. For medications, patient reportstaking medications as directed,no side effects from medication, andchecks blood pressure at home, range:.stable HTN on losartan and amlodipine 5mg. Diabetes F/UReported by PatientHPIFor context, patient reportsnot taking aspirin dailyandside effects from medicationsbut reportsnormal range of home blood sugars (in the low 100s),seeing eye doctor regularly,checking feet regularly, andnot missing doses of medications. For associated symptoms, patient reportsnumbness of feetbut reportsno dizziness,no sweats,no headaches,no confusion,no increased thirst,no increased appetite,no increased urination, andno blurred vision.A1c today 6.3%. Meds: Jardiance 10 mg daily tolerating well. Losartan 50 mg. Tolerating well.Overall diabetic control is very stable.Weight is stable.Diet --- low calories/low carb. Has cut out all sodas, drinks water and one Ice drink/day. Eating Skinny Cow ice cream once per week. Has cut back on snacking, still eats oreos.Exercises - walks on treadmill uphill 4-5x/week.Stable diabetic periperal neuropathy over imposed on neuropathy due to lumbar disc disease with myelopathy with past h/o surgery. Patient sees neurologist and is on gabapentin, carbamazepine small dose and tizanidine.Sees quality associate, last seen in the last 6 months. Tried inserts, which didn't help. Uses Dr. 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 He states he always feels like there is something in his eye and droopy eyelids. Denies improvement or worsening. Last dilated eye exam neg for retinopathy beginning of the year. Diagnosed with cataracts.ROS as noted in the HPI 59 year old male presents for diabetes , HTN and ADD follow up. ADHD: stable on current dose of medication. Valery Alvarez PA-C [address] [address], [place], [address], [facility] 07/23/2024 16:17:12 11/21/2024 text/html Hypertension F/UReported by PatientHPIFor associated symptoms, patient reportsno dizziness,no lightheadedness,no chest pain,no shortness of breath,no palpitations,no edema, andno calf pain with exertion. For lifestyle, patient reportsregular exerciseandlimiting/av oiding salt. For medications, patient reportstaking medications as directed,no side effects from medication, andchecks blood pressure at home, range:.stable HTN on losartan and amlodipine 5mg. Diabetes F/UReported by PatientHPIFor context, patient reportsnot taking aspirin dailyandside effects from medicationsbut reportsnormal range of home blood sugars (in the low 100s),seeing eye doctor regularly,checking feet regularly, andnot missing doses of medications. For associated symptoms, patient reportsnumbness of feetbut reportsno dizziness,no sweats,no headaches,no confusion,no increased thirst,no increased appetite,no increased urination, andno blurred vision.A1c today 6.4%. Meds: Jardiance 10 mg daily tolerating well. Losartan 50 mg. Tolerating well.Overall diabetic control is very stable.Weight is stable.Diet --- low calories/low carb. Has cut out all sodas, drinks water and one Ice drink/day. Eating Skinny Cow ice cream once per week. Has cut back on snacking, still eats oreos.Exercises - walks on treadmill uphill 4-5x/week.Stable diabetic periperal neuropathy over imposed on neuropathy due to lumbar disc disease with myelopathy with past h/o surgery. Patient sees neurologist and is on gabapentin, carbamazepine small dose and tizanidine.Sees quality associate, last seen in the last 6 months. Tried inserts, which didn't help. Uses Dr. 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 He states he always feels like there is something in his eye and droopy eyelids. Denies improvement or worsening. Last dilated eye exam neg for retinopathy beginning of the year. Diagnosed with cataracts.ROS as noted in the HPI 59 year old male presents for diabetes , HTN and ADD follow up. ADHD: stable on current dose of medication. MASH. ALT is 54. BMI is 27.5. No ETOH. Valery Alvarez PA-C [id number] [address], [place], [address], [facility] 11/21/2024 10:45:06 12/11/2024 text/html ROS as noted in the HPI AKHIL RANDALL, 59 YEAR OLD M, with PMHx of ADHD, HTN, LVH, hypercholesteremia, hypothyroidism, vitreous degeneration, GERD, cholelithiasis, peripheral neuropathy, moderate persistent asthma, steatotic liver disease, presents for pre-operative medical clearance for SUMIT EDMOND MD NPI #[id number] / Cataracts RT eye 12/15/24 & LT eye 12/29/24 Denies any acute complaints at this time except nasal congestion for approximately one month. No associated sore throat, eye pain, periorbital edema, headaches, ear fullness, cough, wheeze, nause/vomiting. Reports using Claritin and Afrin daily without relief. Symptoms have stayed the same, have not worsened. Symptoms worse upon wakening. Has allergies to metformin (nausea), penicillin (rash), sulfa drugs (headache). Has tolerated anesthesia in the past without complications. The patient does not follow w/ Cardiology and notes that he can walk multiple blocks and has no limitations with going up multiple flights of stairs before becoming symptomatic METS score ~ > 4.The patient currently denies chest pain, shortness of breath, palpitations, fever, chills, and nausea/vomiting. MAGDALENA GALLWOAY MD [address] [address], [place], [address], [facility] 12/11/2024 13:10:09
--- OUTSIDE RECORDS SUMMARY | 2025-01-01 14:22 | XMS_ITS | Patient Health Record ---
Author Organization [facility] Address [address] [place] [address] Care Team Providers Care Margarine Churn Operator Name Role Phone José Miguel Brian MD Primary Care Provider Unavail able Black, Lynette Unavailable [phone] Allergies Allergen (clinical drug ingredient) Drug/Non Drug Allergy documented on EMR Reaction Allergy Type Onset Date Status sulfa Unknown Drug Allergy Active Penicillin Unknown Drug Allergy Active Reason For Referral No Information Medications Medication SIG (Take, Route, Frequency, Duration) Notes Start Date End Date Status Adderall 5 MG 1 tablet Orally Once a day Active Problems Problem Type SNOMED Code ICD Code Onset Dates Problem Status W/U Status Risk Notes Problem Onychomycosis (439612145) Onychomycosis (110.1) Active confirmed Problem Neuralgia - Neuritis (729.2) Active confirmed Problem Hammer toe (504043095) Hammer toe (735.4) Active confirmed Problem Pain in limb (10342497) Pain in Limb (729.5) Active confirmed Problem Tinea pedis (5365170) Tinea Pedis (110.4) Active confirmed Plan Of Treatment Pending Test Test Name Order Date X ray : Foot, left 3V 09/26/2011 X ray : Foot, right 3V 09/26/2011 Insurance Providers Payer Name Payer Address Payer Phone Subscriber Number Group Number Insured Name Patient Relationship to Insured Coverage Start Date Coverage End Date [facility] [address] [place] [address] [id number] Eron Crow Self - patient is the insured Medical (General) History Medical History History ICD Code chicken pox hepatitis B
== END 2025-01-01 11:45 | disposition home or self-care (01) ==
LOC: HO.HSM 11:18
PROVIDERS: PCP Physician Assistant Medical; Referring Provider Physician Assistant Medical; Visit Provider Psychiatry & Neurology Neurology
DX: G62.89 Other specified polyneuropathies (principal)
CPT/HCPCS: 99213